=== PATIENT | male | born 1990 | race Caucasian/White ===

== ENCOUNTER 2017-06-26 12:36 | Inpatient (IN) | payer OTHER ==
[2017-06-26] MEDS ORDERED: Morphine 4 MG/ML VIAL ONE ×2 (13:48→16:50)
[2017-06-26] MEDS ORDERED: Ondansetron ODT 4 MG TAB ONE ×3 (13:48→20:02)
[2017-06-26 13:49] LABS: #Lymphocytes 0.5 thou/uL (1.20-3.40); #Neutrophils 8.6 thou/uL (1.40-6.50); %Basophils 0.1 % (0.0-1.0); %Eosinophils 0.4 % (0.0-10.0); %Lymphocytes 5.2 % (21.0-51.0); %Monocytes 9.4 % (0.0-10.0); Hemoglobin 16.4 g/dL (14.0-18.0); Mean Corpuscular HGB CONC 34.9 g/dL (32.0-36.0); Mean Platelet Volume 7.2 fL (7.4-10.4); Platelet Count 166 thou/uL (130-400); RBC Distribution Width 12.3 % (11.5-14.5); Red Blood Cell (RBC) Count 4.56 mill/uL (4.70-6.10); White Blood Cell (WBC) Count 10.1 thou/uL (4.8-10.8)
[2017-06-26 14:11] LABS: ALT (SGPT) 104 U/L (8-55); AST (SGOT) 70 U/L (5-34); Albumin 4.6 g/dL (3.5-5.0); Alkaline Phosphatase 99 U/L (40-150); Anion Gap 14 mmol/L (10-20); BUN (Urea Nitrogen) 25 mg/dL (8.9-20.6); Bilirubin, Total 0.7 mg/dL (0.2-1.2); Calc. Creatinine Clearance 0 mL/min (70-130); Calcium 9.3 mg/dL (7.8-10.44); Carbon Dioxide 27 mmol/L (22-29); Chloride 102 mmol/L (98-107); Estimated GFR-MDRD Greater than 90; Globulin 3.3 g/dL (2.4-3.5); Glucose 96 mg/dL (70-105); Lipase 21 U/L (8-78); Potassium 4.1 mmol/L (3.5-5.1); Protein, Total 7.9 g/dL (6.0-8.3); Sodium 139 mmol/L (136-145)
[2017-06-26 14:46] LABS: Bilirubin Small (Negative); Blood, Urine Negative (Negative); Clarity CLEAR (Clear); Glucose, Urine (Dipstick) Negative (Negative); Leukocyte Negative (Negative); Nitrite Negative (Negative); Protein, Urine (Dipstick) Negative (Neg-Trace); Specific Gravity, Urine 1.023 (1.002-1.036)
--- NOTE | 2017-06-26 15:46 | RAD ---
KUB: Date: 06/26/17 INDICATION: History of constipation and abdominal pain. FINDINGS: There is a mild amount of retained fecal material within the region of the rectum and sigmoid colon. Bowel gas pattern is unobstructed. There is a gracile appearance of both proximal femurs. No acute os seous abnormality is grossly evident. IMPRESSION: 1. Mild amount of retained stool within the colon and rectum. 2. Bowel gas pattern is unobstructed. POS: CARI
[2017-06-26] MEDS ORDERED: Milk Of Magnesia 30 ML UDCUP ONE (16:51)
[2017-06-26] MEDS ORDERED: Lidocaine Viscous Sol 2% 15 ml UD Cup ONE (17:24)
[2017-06-26] MEDS ORDERED: Mag-Al 1200 mg/1200 mg/30 ML UDCUP ONE (17:24)
--- NOTE | 2017-06-26 18:58 | CT ---
ABDOMEN AND PELVIC CT SCAN WITH IV CONTRAST 06/26/17 HISTORY: 26-year-old male with history of abdominal pain. The lung bases are clear. Small hiatal hernia. The visualized liver, gallbladder, pancreas and spleen are unremarkable. The left kidney is very small in caliber with some cortical loss and some cortical scarring but no evidence for renal calculus or acute obstruction. There is very marked abnormal w all thickening of the sigmoid colon and rectum with some pericolonic fat stranding, evidence for monica re nonspecific colitis. The abnormal wall thickening extends into the left colon and up to at least t he level of the splenic flexure with relative sparing of the transverse colon. There is some question able wall thickening versus incomplete filling of the right colon. Normal appearing appendix. No evid ence of renal calculus or obstruction. IMPRESSION: Evidence for severe nonspecific colitis with the most marked wall thickening and pericolonic fat stra nding involving the rectum and extending up into the sigmoid colon and left colon. No renal calculus or acute obstruction. Borderline urinary bladder wall thickening, nonspecific, but this could poss ibly represent some cystitis. Small scarred left kidney. No abscess or abnormal fluid collection. The re is also note of a somewhat deformed appearing bony pelvis and the left proximal femur which has th e appearance of old trauma residual. POS: CARI
[2017-06-26] MEDS ORDERED: metroNIDAZOLE 500 MG/100 ML BAG ONE (19:47)
[2017-06-26] MEDS ORDERED: ISOVUE-370 76%-LOCM 1 ML ONE (20:22)
[2017-06-26] MEDS ORDERED: Milk Of Magnesia 30 ML UDCUP PO PRN (22:13)
[2017-06-26] MEDS ORDERED: Morphine 4 MG/ML VIAL SLOW IVP PRN (22:13)
[2017-06-26] MEDS ORDERED: Adenosine 6 MG/2 ML VIAL ONE (22:45)
[2017-06-26] MEDS ORDERED: Metoprolol Tartrate 5 MG/5 ML VIAL ONE (22:58)
[2017-06-26] MEDS ORDERED: Metoprolol Tartrate 5 MG/5 ML VIAL IVP PRN (23:04)
[2017-06-27] MEDS: Sodium Chloride 0.9% 1,000 ML IV SCH ×4 (00:51→19:23)
[2017-06-27] MEDS ORDERED: Metoprolol Tartrate 5 MG/5 ML VIAL IVP PRN (01:03)
[2017-06-27] MEDS ORDERED: Ondansetron HCl/PF 4 MG/2 ML Vial IVP PRN (01:03)
[2017-06-27] MEDS ORDERED: Ondansetron ODT 4 MG TAB PO PRN (02:19)
--- NOTE | 2017-06-27 03:16 | HP ---
PRIMARY CARE PHYSICIAN: Hermann De Souza M.D. PRESENTING COMPLAINT: Abdominal pain. HISTORY OF PRESENT ILLNESS: Mr. Kenn Ramirez is a 26-year-old male with a history of cognitive dis order and cerebral palsy, as well as a history of impacted bowel, who presents to the emergency room with complaint of abdominal pain on for the past 4-5 days. It was associated with nausea and one epi sode of loose stool, with smaller caliber formed stools. There was no vomiting. He has no constipat ion. No fevers or chills. They called his PCP and he was told to come to the [facility] from where he was transferred to [facility]. He has no urinary symptoms. In ad dition, he had one episode of vomiting. History limited due to patient's cognitive disorder and cerebral palsy. PAST MEDICAL HISTORY: As stated in the HPI. PAST SURGICAL HISTORY: Multiple orthopedic surgeries, cleft palate. FAMILY HISTORY: Reviewed and noncontributory. SOCIAL HISTORY: Does not drink alcohol, smoke cigarettes, or use illicit drugs. ALLERGIES: TRAMADOL, BACTRIM. HOME MEDICATIONS: Reviewed. REVIEW OF SYSTEMS: Constitutional: Positive for fatigue, but denies fever or chills. HEENT: Negat mesha. Cardiovascular: Positive for intermittent chest pain and shortness of breath. Respiratory: S hortness of breath. GI: Per HPI. : Negative. Musculoskeletal: Negative. Skin: Negative. Ne urologic: Negative. Hematologic/Lymphatic: Negative. Psychiatric: Negative. PHYSICAL EXAMINATION: VITAL SIGNS: Heart rate 120s, blood pressure 115/79, oxygen saturation 99% on room air, and respirat ory rate 19. GENERAL: Not in acute distress, sitting comfortably in bed. HEENT: Not pale, anicteric. Moist mucous membranes. Atraumatic. NECK: Supple, full range of movement. CARDIOVASCULAR: Regular rhythm, but tachycardic. S1, S2 only. No murmurs, rubs, or gallops. ABDOMEN: Soft with diffuse mild pain. No guarding, rebound tenderness. Bowel sounds normoactive. MUSCULOSKELETAL: Contractures of the upper extremities bilaterally. SKIN: Warm, dry. No rashes or lesions. NEUROLOGIC: Alert, well-oriented. No focal deficits. LABORATORY DATA: CBC is largely unremarkable as well as CMP, but had mildly elevated AST and ALT. U rinalysis was not remarkable. IMAGING: Abdominal x-ray showed mild amount of retained stool in the colon and rectum with nonobstru ctive bowel gas pattern. CT abdomen/pelvis shows evidence of severe nonspecific colitis with most ma rked wall thickening and pericolic fat stranding involving the rectum and extending up to the sigmoid colon and left colon. No renal calculus or acute obstruction. Borderline urinary bladder wall t hickening, nonspecific, but this could possibly represent some cystitis. He also had some scar in th e left kidney. No abscess or abnormal fluid collection. There is also noted to have a somewhat defo rmed appearing bony pelvis on the left proximal femur, which has a prominent appearance of old trauma received well. He was started on IV hydration, cultures taken and parenteral ciprofloxacin and metr onidazole for colitis. ASSESSMENT AND PLAN: 1. Colitis: The patient presented with abdominal pain and CT findings suggestive of colitis. He wi ll be made n.p.o., started on parenteral antibiotics and cultures will be followed. Pain will be con trolled with morphine p.r.n. and patient will be reassessed in the morning. 2. Tachycardia. The patient has been tachycardic and did not respond to fluid boluses in the emerge ncy room. Also, while there, he had an arrhythmia with possible supraventricular tachycardia and was given IV metoprolol and adenosine, which aborted the arrhythmia. He will be admitted to telemetry oncare one at [facility], Cardiology will be consulted and an echocardiogram will be obtained. Metoprolol p.r.n. fo r tachycardia. Tachycardia has improved, but if he returns, we will obtain a followup EKG. 3. History of cerebral palsy and cognitive disorder. The patient is at his baseline. We will continue parenteral hydration as well. Deep venous thrombosis prophylaxis with enoxaparin. CODE STATUS: FULL CODE.
[2017-06-27] MEDS: metroNIDAZOLE 500 MG in Premix Bag 1 BAG IVPB SCH ×3 (05:08→23:47)
[2017-06-27 05:09] LABS: #Lymphocytes 0.7 thou/uL (1.20-3.40); #Monocytes 1.5 thou/uL (0.11-0.59); #Neutrophils 9.3 thou/uL (1.40-6.50); %Basophils 0.2 % (0.0-1.0); %Eosinophils 0.4 % (0.0-10.0); %Monocytes 12.9 % (0.0-10.0); %Neutrophils 80.5 % (42.0-75.0); Hemoglobin 13.7 g/dL (14.0-18.0); Mean Corpuscular HGB CONC 33.8 g/dL (32.0-36.0); Mean Corpuscular Hemoglobin 35.2 pg (27.0-31.0); Mean Platelet Volume 7.5 fL (7.4-10.4); Platelet Count 150 thou/uL (130-400); RBC Distribution Width 12.5 % (11.5-14.5); Red Blood Cell (RBC) Count 3.89 mill/uL (4.70-6.10); White Blood Cell (WBC) Count 11.6 thou/uL (4.8-10.8)
[2017-06-27 05:18] LABS: Anion Gap 15 mmol/L (10-20); BUN (Urea Nitrogen) 11 mg/dL (8.9-20.6); Calc. Creatinine Clearance 114 mL/min (70-130); Calcium 7.7 mg/dL (7.8-10.44); Carbon Dioxide 21 mmol/L (22-29); Chloride 105 mmol/L (98-107); Estimated GFR-MDRD Greater than 90; Glucose 104 mg/dL (70-105); Potassium 3.6 mmol/L (3.5-5.1); Sodium 137 mmol/L (136-145)
[2017-06-27] MEDS ORDERED: Promethazine HCl 25 MG/ML VIAL SLOW IVP PRN (05:26)
[2017-06-27] MEDS ORDERED: Ketorolac Tromethamine 30 MG/ML VIAL IVP SCH (05:30)
[2017-06-27 10:17] VITALS: BMI 21.3
[2017-06-27] MEDS: Docusate 100 MG CAP PO SCH ×2 (10:58→22:24)
[2017-06-27] MEDS: Enoxaparin Sodium 40 MG/0.4 ML SYRINGE SC SCH (10:58)
--- NOTE | 2017-06-27 12:39 | PDOC.PN ---
- Subjective Encounter Start Date: 06/27/17 Encounter Start Time: 12:38 Subjective: drowsy and nursing report low BP after pain meds,metoprolol -: c/o mild AP when woken up.no nausea/vomiting.some loose stools - Objective MAR Reviewed: Yes Vital Signs & Weight: Vital Signs (12 hours) Temp Pulse Resp BP Pulse Ox 06/27/17 12:00 99.0 F 103 H 14 99/72 97 06/27/17 11:09 99/72 06/27/17 10:02 89/62 L 06/27/17 07:55 99.7 F H 120 H 16 86/41 L 97 06/27/17 03:42 98.4 F 123 H 16 95/52 L 97 Weight Admit Weight 85 lb Weight 105 lb 11.2 oz I&O: 06/26/17 06/27/17 06/28/17 06:59 06:59 06:59 Intake Total 1320 Balance 1320 Result Diagrams: 06/27/17 04:48 06/27/17 04:48 Radiology Reviewed by me: Yes (CT-colitis) EKG Reviewed by me: Yes (Sinus Tach on monitor) Phys Exam - Physical Examination Constitutional: NAD pale,weak looking HEENT: PERRLA, moist MMs, sclera anicteric, oral pharynx no lesions Neck: no JVD Respiratory: no wheezing, no rales, no rhonchi, clear to auscultation bilateral Cardiovascular: RRR, no significant murmur Gastrointestinal: soft, no distention, positive bowel sounds mild TTP lpower abdomen across Musculoskeletal: no edema, pulses present Neurological: non-focal, normal sensation LE weakness noted Psychiatric: normal affect, A&O x 3 Skin: no rash Dx/Plan (1) Colitis Code(s): K52.9 - NONINFECTIVE GASTROENTERITIS AND COLITIS, UNSPECIFIED Status : Acute (2) Abdominal pain Code(s): R10.9 - UNSPECIFIED ABDOMINAL PAIN Status: Acute (3) Sinus tachycardia Code(s): R00.0 - TACHYCARDIA, UNSPECIFIED Status: Acute (4) Hypotension Status: Acute (5) Cerebral palsy Code(s): G80.9 - CEREBRAL PALSY, UNSPECIFIED Status: Chronic - Plan plan discussed w/ family, continue antibiotics, PT/OT, DVT proph w/SCDs cont IV ABx.will consult GI for extensive colitis.? stercoral -: bowel regimen to prevent ileus -: fluid bolus given for low Bp w improvement.hold BB/pain meds -: Cardiology consult for short episode of SVT in ER.ECHO ordered. -: supportive care.cont IVF.obtain stool studies.am labs * . Review of Systems - Review of Systems Constitutional: weakness, malaise ENT: negative: Ear Pain, Ear Discharge, Nose Pain, Nose Discharge, Nose Congestion, Mouth Pain, Mouth Swelling, Throat Pain, Throat Swelling, Other Respiratory: negative: Cough, Dry, Shortness of Breath, Hemoptysis, SOB with Excertion, Pleuritic Pain, Sputum, Wheezing Cardiovascular: negative: chest pain, palpitations, orthopnea, paroxysmal nocturnal dyspnea, edema, light headedness, other Gastrointestinal: Abdominal Pain, Diarrhea Genitourinary: negative: Dysuria, Frequency, Incontinence, Hematuria, Retention , Other Musculoskeletal: negative: Neck Pain, Shoulder Pain, Arm Pain, Back Pain, Hand Pain, Leg Pain, Foot Pain, Other Skin: negative: Rash, Lesions, Eladio, Bruising, Other Neurological: Weakness (chronic due to CP). negative: Numbness, Incoordination , Change in Speech, Confusion, Seizures, Other - Medications/Allergies Allergies/Adverse Reactions: Allergies Allergy/AdvReac Type Severity Reaction Status Date / Time sulfamethoxazole Allergy Verified 06/27/17 05:31 [From Bactrim] tramadol Allergy Verified 06/27/17 05:31 trimethoprim [From Bactrim] Allergy Verified 06/27/17 05:31 Medications: Current Medications Acetaminophen (Tylenol) 650 mg PO Q4H PRN PRN Reason: Headache/Fever or Pain Docusate Sodium (Colace) 100 mg PO BID [facility] Last Admin: 06/27/17 10:58 Dose: Not Given Enoxaparin Sodium (Lovenox) 40 mg SC 0900 [facility] Last Admin: 06/27/17 10:58 Dose: 40 mg Ciprofloxacin/Dextrose 400 mg/ (Device) 200 mls @ 200 mls/hr IVPB Q12HR [facility] Last Admin: 06/27/17 10:57 Dose: 200 mls Metronidazole 500 mg/ Device 100 mls @ 100 mls/hr IVPB Q8HR [facility] Last Admin: 06/27/17 05:08 Dose: 100 mls Sodium Chloride (Normal Saline 0.9%) 1,000 mls @ 150 mls/hr IV .Q6H40M [facility] Last Admin: 06/27/17 10:57 Dose: 1,000 mls Lactulose (Lactulose) 20 gm PO DAILYPRN PRN PRN Reason: Constipation Magnesium Hydroxide (Milk Of Magnesium) 30 ml PO DAILYPRN PRN PRN Reason: Constipation Metoprolol Tartrate (Lopressor) 5 mg IVP Q6H PRN PRN Reason: To Control Heart Rate Last Admin: 06/27/17 01:05 Dose: 5 mg Morphine Sulfate (Morphine) 4 mg SLOW IVP Q4H PRN PRN Reason: Severe Pain (7-10) Last Admin: 06/27/17 00:50 Dose: 4 mg Ondansetron HCl (Zofran Odt) 4 mg PO Q6H PRN PRN Reason: Nausea/Vomiting Last Admin: 06/27/17 02:35 Dose: 4 mg Promethazine HCl (Phenergan) 12.5 mg SLOW IVP Q4H PRN PRN Reason: Nausea Last Admin: 06/27/17 06:17 Dose: 12.5 mg Sodium Chloride (Flush - Normal Saline) 10 ml IVF Q12HR [facility] Sodium Chloride (Flush - Normal Saline) 10 ml IVF PRN PRN PRN Reason: Saline Flush Last Admin: 06/27/17 00:51 Dose: 10 ml
--- NOTE | 2017-06-27 15:09 | CON ---
DATE OF CONSULTATION: 06/27/2017 CARDIOLOGY CONSULTATION REASON FOR CONSULTATION: Supraventricular tachycardia. HISTORY OF PRESENT ILLNESS: Mr. Ramirez is a pleasant 26-year-old white gentleman, who comes [facility] for abdominal pain. He was diagnosed with the colitis from an abdominal CT and admitted for IV antibiotics. During his admission in the ER, he had a heart rate in the 230s. EKG showed SVT. Sherly elder was given a dose of adenosine and metoprolol, which broke his SVT to sinus tachycardia and made his heart rate go down to about the 120s-130s. He otherwise has no other issues at this time. He has n ot had any more episodes of SVT since being in the hospital. PAST MEDICAL HISTORY: 1. Cognitive disorder with cerebral palsy. 2. 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 PAST SURGICAL HISTORY: 1. Cleft palate repair. 2. Multiple orthopedic surgeries in the past. FAMILY HISTORY: Negative for early coronary artery disease. SOCIAL HISTORY: No alcohol, tobacco or drugs. ALLERGIES: TRAMADOL and BACTRIM. OUTPATIENT MEDICATIONS: None. REVIEW OF SYSTEMS: A 12 point review of systems was done, it is all negative unless stated in the hi story of present illness. PHYSICAL EXAMINATION: VITAL SIGNS: Temperature 99.7, pulse 103, respiratory rate 14, satting 97% on room air, blood pressu re 99/72. GENERAL: Awake, alert, oriented x3, in no distress. HEENT: Normocephalic, atraumatic. NECK: Supple. LUNGS: Clear. CARDIOVASCULAR: S1, S2, no S3, S4, no murmurs. ABDOMEN: Soft, positive bowel sounds. EXTREMITIES: Contracted. No edema. SKIN: Normal and dry. LABORATORY WORK: Reviewed. White count of 11.6, hemoglobin of 13.7, hematocrit 40, platelet count o f 150. Chemistries were reviewed. UA was unremarkable. IMAGING: CT of the abdomen and pelvis was reviewed, evidence of severe nonspecific colitis, most mar ked wall thickening pericolonic fat stranding involving the rectum and extending up into the sigmoid colon and left colon. EKG is reviewed, SVT at 238 beats per minute. ASSESSMENT AND PLAN: 1. Supraventricular tachycardia. 2. Acute infectious colitis. 3. Cognitive disorder and some low cerebral palsy. PLAN: 1. Currently, he is intolerant to any beta-samir or calcium channel samir. He did receive a dos e of IV metoprolol this morning and his blood pressure dipped down to the 70s/40s. At this time, he is in sinus tachycardia, most likely related to his infection. We will continue to monitor for now. 2. We will do EP consultation for consideration of ablation; however, this probably will not happen until after his colitis is resolved. 3. Continue to monitor on telemetry. If he were to have any further episodes of SVT, would recommen d doing IV adenosine at that time. Thank you for letting us participate in the care of your patient. We will follow.
--- NOTE | 2017-06-28 00:08 | CON ---
DATE OF CONSULTATION: 06/27/2017 REFERRING PHYSICIAN: Dr. Tamara Merlos, [facility] [[email or web address]] Service. REASON FOR CONSULTATION: Abdominal pain, abnormal CT scan of the abdomen. HISTORY OF PRESENT ILLNESS: Mr. Kenn Ramirez is a fragile looking young male, who has hi story of cerebral palsy, cognitive disorder. The patient does see Dr. Hermann De Souza, who is his prima care doctor. The patient was seen in the room along with the patient's mother. The patient's mot her tells me that he got sick over the past Thursday after drinking some pineapple juice He did not fee l good for a day or two and he did not feel like eating. However, he is having little bowel movement . He had no diarrhea. There were no history of any nausea or vomiting. Symptoms not getting better on Thursday and he felt good and even does say as she felt good and was having eating very well, no n ausea, no abdominal pain, no diarrhea, etc. Yesterday morning, started having abdominal pain. Appar ently, they tried to get hold of Dr. Bocanegra who advised the patient to come to the ER. The patient' s mother brought him to the ER. The patient had an abdominal CAT scan done in the ER. The CAT scan showed thickening of the rectum and whole entire left colon. However, there is no history of diarrhe a as per the mother. He has normal stool on . He had one episode of vomiting in the ER yest . However, after, he has had no more vomiting. He is n.p.o. He appears comfortable. His moth er tells me that after he vomited, he was found to have some more heartburn and also has some chest p ain. The patient appears very comfortable as the same time he is having some mild to moderate pain. He has had no stool today. He has no more nausea or vomiting in the floor. There is mention of fec al impaction but the mother tell mother tells this happening quite some time ago not seen recently. Recently has been actually having more regular bowel movements. No relevant history. ALLERGIES: TRAMADOL and BACTRIM. SOCIAL HISTORY: The patient does not smoke or drink alcohol. MEDICAL ILLNESSES: 1. Cerebral palsy. 2. Cognitive disorder. 3. Multiple orthopedic surgeries. 4. Multiple surgeries of cleft palate. MEDICATIONS: List reviewed. Include Ciprofloxacin, docusate, Lovenox, Zofran, lactulose, metoprolol , metronidazole, morphine p.r.n. He is also on Percocet p.r.n. REVIEW OF SYSTEMS: Unobtainable because of the cognitive impairment. PHYSICAL EXAMINATION: GENERAL: Reveals a fragile looking young male, who appears very comfortable in no distress . VITAL SIGNS: He has low grade fever of 99 degrees Fahrenheit, pulse 103, blood pressure is 119/72. HEENT: Conjunctivae clear. NECK: Supple. No adenitis or thyromegaly noted. CARDIOVASCULAR SYSTEM: First and second heart sound normal. LUNGS: Clear to auscultation. ABDOMEN: Soft and nondistended. Abdomen is mildly tender across the lower abdomen. Over all, the e xam is very benign. EXTREMITIES: Reveal no edema. LABORATORY DATA AND IMAGING: CBC shows WBC from this morning 11,600, hemoglobin 13.7, hematocrit 40. 6, MCV 104, platelet count is 150,000, polymorphs 18, lymphocytes 6, monocytes 12. Serum chemistries : Sodium 137, potassium 3.6, chloride 105, bicarbonate 21. BUN is 11, it was 25 on admission. Crea tinine 0.67, calcium 7.7, bilirubin 0.7, AST slightly high at 70, ALT 104, alkaline phosphatase 99, a lbumin 4.6. An abdominal CAT scan done showed evidence of colitis of the left colon. CLINICAL IMPRESSION: 1. A 26-year-old male with abdominal pain and history of some nausea and some vomiting on admission. The patient had fecal impaction long time ago, but nothing recently. The CAT scan showed finding of left sided colitis. The patient had no diarrhea or rectal bleeding. It is not very rory r what is the reason for the colitis. His abdomen exam is very benign. It is possible that the tracy ent may be having infectious colitis. 2. Cerebral palsy - cognitive impairment. 3. Abnormal liver function tests . The CAT scan of the abdomen did not show any liver parenchym al abnormalities. RECOMMENDATIONS: 1. Discontinue n.p.o. 2. Clear liquid diet. 3. The patient is not having diarrhea, obtain stool for C. difficile and culture and ova and parasit es. 4. We will make further recommendations as time goes. I will also talk to mother about a colonoscop y.
[2017-06-28] MEDS: Sodium Chloride 0.9% 1,000 ML IV SCH ×2 (04:23→09:11)
[2017-06-28] MEDS: metroNIDAZOLE 500 MG in Premix Bag 1 BAG IVPB SCH ×3 (05:37→21:18)
[2017-06-28 06:16] LABS: Anion Gap 8 mmol/L (10-20); BUN (Urea Nitrogen) 5 mg/dL (8.9-20.6); Calc. Creatinine Clearance 118 mL/min (70-130); Calcium 7.4 mg/dL (7.8-10.44); Carbon Dioxide 22 mmol/L (22-29); Chloride 110 mmol/L (98-107); Estimated GFR-MDRD Greater than 90; Glucose 93 mg/dL (70-105); Potassium 3.7 mmol/L (3.5-5.1); Sodium 136 mmol/L (136-145)
[2017-06-28 07:01] LABS: Eosinophils 4 % (0-10); Hemoglobin 12.7 g/dL (14.0-18.0); Lymphocytes 21 % (21-51); MDiff Complete? YES; Macrocytosis MODERATE=16-30 cells (100X) (0-5/hpf); Mean Corpuscular HGB CONC 33.8 g/dL (32.0-36.0); Mean Corpuscular Hemoglobin 35.4 pg (27.0-31.0); Mean Platelet Volume 7.6 fL (7.4-10.4); Monocytes 8 % (0-10); Neutrophil 66 % (42-75); PLT Morphology Comment Appears Decreased; Platelet Count 113 thou/uL (130-400); RBC Distribution Width 12.5 % (11.5-14.5); Reactive Lymphocytes 1 % (0-10); White Blood Cell (WBC) Count 5.4 thou/uL (4.8-10.8)
[2017-06-28] MEDS ORDERED: Morphine 4 MG/ML VIAL SLOW IVP PRN (08:25)
[2017-06-28] MEDS ORDERED: Metoprolol Tartrate 5 MG/5 ML VIAL IVP PRN (08:26)
[2017-06-28] MEDS: Docusate 100 MG CAP PO SCH ×2 (09:10→21:18)
[2017-06-28] MEDS: Enoxaparin Sodium 40 MG/0.4 ML SYRINGE SC SCH (09:10)
[2017-06-28] MEDS ORDERED: Pantoprazole 40 MG VIAL IVP SCH (10:15)
--- NOTE | 2017-06-28 13:42 | PDOC.CTH ---
Cardiology Progress Note - Subjective He is doing well. No new issues. - Objective Vital Signs Temp Pulse Resp BP BP Pulse Ox 06/28/17 11:43 98.5 F 108 H 16 115/84 95 06/28/17 08:59 98.5 F 108 H 16 06/28/17 08:00 98.7 F 114 H 18 92/62 95 06/28/17 04:00 98.8 F 101 H 18 101/46 L 95 Admit Weight 85 lb Weight 105 lb 11.2 oz 06/27/17 06/28/17 06/29/17 06:59 06:59 06:59 Intake Total 1320 7440 300 Balance 1320 7440 300 - Physical Examination General/Neuro: alert & oriented x3, NAD Neck: no JVD present Lungs: CTA, unlabored respirations Heart: RRR Abdomen: NT/ND Extremities: other: (no edema, contracted,.) - Telemetry Telemetry Rhythm: S tach - Labs Result Diagrams: 06/28/17 05:26 06/28/17 05:26 - Assessment/Plan 1. SVT 2. Colitis 3. CP PLAN: - EP consultation tomorrow. - BP borderline low to start a BB or CCB.
--- NOTE | 2017-06-28 13:47 | PDOC.PN ---
- Subjective Encounter Start Date: 06/28/17 Encounter Start Time: 13:46 Subjective: some abdominal cramps but no stools. no vomiting.no fever/chills -: good appetite and eating most of his regular diet - Objective MAR Reviewed: Yes Vital Signs & Weight: Vital Signs (12 hours) Temp Pulse Resp BP BP Pulse Ox 06/28/17 11:43 98.5 F 108 H 16 115/84 95 06/28/17 08:59 98.5 F 108 H 16 06/28/17 08:00 98.7 F 114 H 18 92/62 95 06/28/17 04:00 98.8 F 101 H 18 101/46 L 95 Weight Admit Weight 85 lb Weight 105 lb 11.2 oz I&O: 06/27/17 06/28/17 06/29/17 06:59 06:59 06:59 Intake Total 1320 7440 300 Balance 1320 7440 300 Result Diagrams: 06/28/17 05:26 06/28/17 05:26 Radiology Reviewed by me: Yes (ECHO-NL cardiac function and valves) Phys Exam - Physical Examination Constitutional: NAD HEENT: PERRLA, moist MMs, sclera anicteric, oral pharynx no lesions Neck: no JVD Respiratory: no wheezing, no rales, no rhonchi, clear to auscultation bilateral Cardiovascular: RRR, no significant murmur Gastrointestinal: soft, no distention, positive bowel sounds mild TTP left abdominal Musculoskeletal: no edema, pulses present Neurological: non-focal, normal sensation, moves all 4 limbs Psychiatric: normal affect, A&O x 3 Deviation from normal: mild mental retardation Skin: no rash Dx/Plan (1) Colitis Code(s): K52.9 - NONINFECTIVE GASTROENTERITIS AND COLITIS, UNSPECIFIED Status : Acute Comment: millaley infectious.Clinically improving. (2) Abdominal pain Code(s): R10.9 - UNSPECIFIED ABDOMINAL PAIN Status: Acute (3) Sinus tachycardia Code(s): R00.0 - TACHYCARDIA, UNSPECIFIED Status: Acute (4) Hypotension Status: Acute (5) Cerebral palsy Code(s): G80.9 - CEREBRAL PALSY, UNSPECIFIED Status: Chronic (6) SVT (supraventricular tachycardia) Code(s): I47.1 - SUPRAVENTRICULAR TACHYCARDIA Status: Acute Comment: one episode in ER. - Plan plan discussed w/ family, continue antibiotics, PT/OT, DVT proph w/SCDs cont empiric ABx for infectious colitis.Stools studies pending.will give 1 -: dose lactulose to get stool sample. -: DC IVF as diet is good. -: Cardiology recs noted-will consult EP for possible ablation.NPO past MN -: HD stable.WC bound.will consult OT/PT for in house conditioning * .HR better. avoid BB/CCb due to low BP * Review of Systems - Review of Systems Constitutional: malaise. negative: fever, chills, sweats, weakness, other ENT: negative: Ear Pain, Ear Discharge, Nose Pain, Nose Discharge, Nose Congestion, Mouth Pain, Mouth Swelling, Throat Pain, Throat Swelling, Other Respiratory: negative: Cough, Dry, Shortness of Breath, Hemoptysis, SOB with Excertion, Pleuritic Pain, Sputum, Wheezing Cardiovascular: negative: chest pain, palpitations, orthopnea, paroxysmal nocturnal dyspnea, edema, light headedness, other Gastrointestinal: Abdominal Pain. negative: Nausea, Vomiting, Diarrhea, Constipation, Melena, Hematochezia, Other Genitourinary: negative: Dysuria, Frequency, Incontinence, Hematuria, Retention , Other Musculoskeletal: negative: Neck Pain, Shoulder Pain, Arm Pain, Back Pain, Hand Pain, Leg Pain, Foot Pain, Other Skin: negative: Rash, Lesions, Eladio, Bruising, Other Neurological: negative: Weakness, Numbness, Incoordination, Change in Speech, Confusion, Seizures, Other - Medications/Allergies Allergies/Adverse Reactions: Allergies Allergy/AdvReac Type Severity Reaction Status Date / Time sulfamethoxazole Allergy Verified 06/27/17 05:31 [From Bactrim] tramadol Allergy Verified 06/27/17 05:31 trimethoprim [From Bactrim] Allergy Verified 06/27/17 05:31 Medications: Current Medications Acetaminophen (Tylenol) 650 mg PO Q4H PRN PRN Reason: Headache/Fever or Pain Docusate Sodium (Colace) 100 mg PO BID [facility] Last Admin: 06/28/17 09:10 Dose: 100 mg Enoxaparin Sodium (Lovenox) 40 mg SC 0900 [facility] Last Admin: 06/28/17 09:10 Dose: 40 mg Ciprofloxacin/Dextrose 400 mg/ (Device) 200 mls @ 200 mls/hr IVPB Q12HR [facility] Last Admin: 06/28/17 09:08 Dose: 200 mls Metronidazole 500 mg/ Device 100 mls @ 100 mls/hr IVPB Q8HR [facility] Last Admin: 06/28/17 12:44 Dose: 100 mls Lactulose (Lactulose) 20 gm PO DAILYPRN PRN PRN Reason: Constipation Last Admin: 06/28/17 11:22 Dose: 20 gm Magnesium Hydroxide (Milk Of Magnesium) 30 ml PO DAILYPRN PRN PRN Reason: Constipation Metoprolol Tartrate (Lopressor) 5 mg IVP Q6H PRN PRN Reason: HR > 135 Morphine Sulfate (Morphine) 2 mg SLOW IVP Q4H PRN PRN Reason: Severe Pain (7-10) Ondansetron HCl (Zofran Odt) 4 mg PO Q6H PRN PRN Reason: Nausea/Vomiting Last Admin: 06/27/17 02:35 Dose: 4 mg Pantoprazole Sodium (Protonix) 40 mg PO DAILY [facility] Promethazine HCl (Phenergan) 12.5 mg SLOW IVP Q4H PRN PRN Reason: Nausea Last Admin: 06/27/17 06:17 Dose: 12.5 mg Sodium Chloride (Flush - Normal Saline) 10 ml IVF Q12HR [facility] Last Admin: 06/28/17 09:11 Dose: Not Given Sodium Chloride (Flush - Normal Saline) 10 ml IVF PRN PRN PRN Reason: Saline Flush Last Admin: 06/27/17 00:51 Dose: 10 ml
[2017-06-28] MEDS: Acetaminophen 325 MG TAB PO PRN (23:33)
[2017-06-29] MEDS ORDERED: diphenhydrAMINE 50 MG/ML VIAL IVP SCH (01:02)
--- NOTE | 2017-06-29 01:08 | PDOC.EVN ---
Event Note - Event Note Event Note: called to patient bedside to evaluated twitching of the R arm while at bedside, patient's mother highlights that the patient has increased eye redness, is breathing fast, and has erythema rapidly developing across chest wall, neck pt c/o right sided chest pain and that his right arm hurts several PIV attempts were made on the RUE earlier in the evening with a L midline ultlimately placed concerning for allergic reaction - IV benadryl, IV famotidine, IV solumedrol ordered check EKG, troponin, CXR as well
[2017-06-29] MEDS ORDERED: Famotidine 40 MG/4 ML VIAL SLOW IVP SCH (01:15)
[2017-06-29 01:56] LABS: Band 1 % (5-11); Eosinophils 3 % (0-10); Hemoglobin 13.9 g/dL (14.0-18.0); Lymphocytes 28 % (21-51); MDiff Complete? YES; Mean Corpuscular HGB CONC 34.5 g/dL (32.0-36.0); Mean Corpuscular Hemoglobin 35.9 pg (27.0-31.0); Mean Platelet Volume 7.1 fL (7.4-10.4); Monocytes 23 % (0-10); Neutrophil 44 % (42-75); PLT Morphology Comment Appears Adequate; Platelet Count 136 thou/uL (130-400); RBC Distribution Width 12.3 % (11.5-14.5); Red Blood Cell (RBC) Count 3.88 mill/uL (4.70-6.10); White Blood Cell (WBC) Count 4.6 thou/uL (4.8-10.8)
[2017-06-29 02:01] LABS: ALT (SGPT) 64 U/L (8-55); AST (SGOT) 32 U/L (5-34); Albumin 3.6 g/dL (3.5-5.0); Alkaline Phosphatase 64 U/L (40-150); Anion Gap 11 mmol/L (10-20); BUN (Urea Nitrogen) 7 mg/dL (8.9-20.6); Bilirubin, Total 0.6 mg/dL (0.2-1.2); Calc. Creatinine Clearance 114 mL/min (70-130); Calcium 8.3 mg/dL (7.8-10.44); Carbon Dioxide 26 mmol/L (22-29); Chloride 105 mmol/L (98-107); Estimated GFR-MDRD Greater than 90; Globulin 2.7 g/dL (2.4-3.5); Glucose 93 mg/dL (70-105); Potassium 3.6 mmol/L (3.5-5.1); Protein, Total 6.3 g/dL (6.0-8.3); Sodium 138 mmol/L (136-145)
[2017-06-29 02:06] LABS: Troponin I Less than 0.010 ng/mL (< 0.028)
[2017-06-29] MEDS: metroNIDAZOLE 500 MG in Premix Bag 1 BAG IVPB SCH ×2 (05:25→07:42)
--- NOTE | 2017-06-29 08:35 | RAD ---
CHEST 1 VIEW: Date: 06/29/17 HISTORY: Chest pain. COMPARISON: None. FINDINGS: Portable upright chest demonstrates a normal cardiac silhouette. Lungs and pleural spaces are clear. No pneumothorax or osseous abnormalities. IMPRESSION: No acute cardiopulmonary process. POS: [facility]
--- NOTE | 2017-06-29 09:04 | PRG ---
DATE OF SERVICE: 06/28/2017 SUBJECTIVE: This is a 26-year-old hospitalized over the weekend with abdominal cramping an d nausea and loose stool. The CAT scan shows left-sided colitis. He is on IV antibiotics. He also had an episode of SVT and has seen Dr. Winston. The patient appears very comfortable at the present t silvia. He is tolerating diet. There is no nausea, no vomiting. He has no abdominal cramping off and on. No abdominal pain. OBJECTIVE: GENERAL: Appears very comfortable, afebrile, temperature 98.8 degrees Fahrenheit, pulse 101, blood p ressure 101/46. LUNGS: Normal limits. ABDOMEN: Abdomen is soft. Abdomen is nondistended. Abdomen actually is nontender. He complains of abdominal cramping off and on. LABORATORY DATA: Showed a normal WBC count 5400, hemoglobin is 12.7, hematocrit 37.6, platelet count 130. MEDICAL ILLNESSES: His chemistry panel is normal. BUN is 5, creatinine is 0.65. CLINICAL IMPRESSION: 1. Colitis, most likely infectious as he seems to be better with treatment on antibiotics. 2. Supraventricular tachycardia, resolved. 3. Cerebral palsy, cognitive impairment. RECOMMENDATIONS: 1. Diet as tolerated. 2. Continue antibiotics. Because of age and colitis, I believe he did agree . Recommend he may follow the LFTs as outpatient to make sure they normalize.
[2017-06-29] MEDS: Enoxaparin Sodium 40 MG/0.4 ML SYRINGE SC SCH (10:14)
[2017-06-29] MEDS: Docusate 100 MG CAP PO SCH ×2 (10:14→21:17)
[2017-06-29] MEDS: Sodium Chloride 0.9% 1,000 ML IV SCH ×2 (11:14→21:16)
--- NOTE | 2017-06-29 12:16 | PDOC.PN ---
- Subjective Encounter Start Date: 06/29/17 Encounter Start Time: 12:14 Subjective: c/o itchy eyes,rash and throat pain last night during flagyl infusion -: 1 small BM this am which was formed -: on and off complains of chest pain of few seconds - Objective MAR Reviewed: Yes Vital Signs & Weight: Vital Signs (12 hours) Temp Pulse Resp BP Pulse Ox 06/29/17 12:00 98.6 F 98 12 149/95 H 97 06/29/17 08:14 96.4 F L 116 H 18 121/75 98 06/29/17 04:00 98.6 F 96 16 120/70 98 Weight Admit Weight 85 lb Weight 105 lb 14.4 oz I&O: 06/28/17 06/29/17 06/30/17 06:59 06:59 06:59 Intake Total 7440 750 Balance 7440 750 Result Diagrams: 06/29/17 01:26 06/29/17 01:26 Additional Labs: Laboratory Tests 06/26/17 06/29/17 06/29/17 13:39 01:26 01:26 AST 70 H 32 ALT 104 H 64 H Alkaline Phosphatase 99 64 Troponin I Less than 0.010 Radiology Reviewed by me: Yes (CXR- no edema,infiltrate) EKG Reviewed by me: Yes (NSR) Phys Exam - Physical Examination Constitutional: NAD HEENT: PERRLA, moist MMs, sclera anicteric, oral pharynx no lesions Neck: no nodes, no JVD, supple, full ROM Respiratory: no wheezing, no rales, no rhonchi, clear to auscultation bilateral Cardiovascular: RRR, no significant murmur Gastrointestinal: soft, non-tender, no distention, positive bowel sounds Musculoskeletal: no edema, pulses present Neurological: non-focal, normal sensation, moves all 4 limbs Psychiatric: normal affect, A&O x 3 Deviation from normal: mild mental reterdation Skin: no rash Dx/Plan (1) Colitis Code(s): K52.9 - NONINFECTIVE GASTROENTERITIS AND COLITIS, UNSPECIFIED Status : Acute Comment: millaley infectious.Clinically improving. (2) Abdominal pain Code(s): R10.9 - UNSPECIFIED ABDOMINAL PAIN Status: Acute (3) Sinus tachycardia Code(s): R00.0 - TACHYCARDIA, UNSPECIFIED Status: Acute (4) Hypotension Status: Acute (5) Cerebral palsy Code(s): G80.9 - CEREBRAL PALSY, UNSPECIFIED Status: Chronic (6) SVT (supraventricular tachycardia) Code(s): I47.1 - SUPRAVENTRICULAR TACHYCARDIA Status: Acute Comment: one episode in ER. 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 Miles for ablation for SVT today * .await final GI recs. * hemodynamically stable. * check am labs * blood Cx not sent on admission but does not appear septic on clinical exam. * start IVF as he is NPO for procedure today * stool sample obtained today.will follow results Review of Systems - Review of Systems Constitutional: negative: fever, chills, sweats, weakness, malaise, other Respiratory: negative: Cough, Dry, Shortness of Breath, Hemoptysis, SOB with Excertion, Pleuritic Pain, Sputum, Wheezing Cardiovascular: negative: chest pain, palpitations, orthopnea, paroxysmal nocturnal dyspnea, edema, light headedness, other Gastrointestinal: negative: Nausea, Vomiting, Abdominal Pain, Diarrhea, Constipation, Melena, Hematochezia, Other Genitourinary: negative: Dysuria, Frequency, Incontinence, Hematuria, Retention , Other Musculoskeletal: negative: Neck Pain, Shoulder Pain, Arm Pain, Back Pain, Hand Pain, Leg Pain, Foot Pain, Other Neurological: negative: Weakness, Numbness, Incoordination, Change in Speech, Confusion, Seizures, Other - Medications/Allergies Allergies/Adverse Reactions: Allergies Allergy/AdvReac Type Severity Reaction Status Date / Time sulfamethoxazole Allergy Verified 06/27/17 05:31 [From Bactrim] tramadol Allergy Verified 06/27/17 05:31 trimethoprim [From Bactrim] Allergy Verified 06/27/17 05:31 Medications: Current Medications Acetaminophen (Tylenol) 650 mg PO Q4H PRN PRN Reason: Headache/Fever or Pain Last Admin: 06/28/17 23:33 Dose: 650 mg Docusate Sodium (Colace) 100 mg PO BID [facility] Last Admin: 06/29/17 10:14 Dose: Not Given Enoxaparin Sodium (Lovenox) 40 mg SC 0900 [facility] Last Admin: 06/29/17 10:14 Dose: Not Given Ciprofloxacin/Dextrose 400 mg/ (Device) 200 mls @ 200 mls/hr IVPB Q12HR [facility] Last Admin: 06/29/17 10:16 Dose: 200 mls Sodium Chloride (Normal Saline 0.9%) 1,000 mls @ 100 mls/hr IV .Q10H [facility] Last Admin: 06/29/17 11:14 Dose: Not Given Lactulose (Lactulose) 20 gm PO DAILYPRN PRN PRN Reason: Constipation Last Admin: 06/28/17 11:22 Dose: 20 gm Magnesium Hydroxide (Milk Of Magnesium) 30 ml PO DAILYPRN PRN PRN Reason: Constipation Metoprolol Tartrate (Lopressor) 5 mg IVP Q6H PRN PRN Reason: HR > 135 Metronidazole (Flagyl) 500 mg PO TID [facility] Morphine Sulfate (Morphine) 2 mg SLOW IVP Q4H PRN PRN Reason: Severe Pain (7-10) Ondansetron HCl (Zofran Odt) 4 mg PO Q6H PRN PRN Reason: Nausea/Vomiting Last Admin: 06/27/17 02:35 Dose: 4 mg Pantoprazole Sodium (Protonix) 40 mg PO DAILY [facility] Last Admin: 06/29/17 10:14 Dose: Not Given Promethazine HCl (Phenergan) 12.5 mg SLOW IVP Q4H PRN PRN Reason: Nausea Last Admin: 06/27/17 06:17 Dose: 12.5 mg Sodium Chloride (Flush - Normal Saline) 10 ml IVF Q12HR [facility] Last Admin: 06/29/17 10:14 Dose: Not Given Sodium Chloride (Flush - Normal Saline) 10 ml IVF PRN PRN PRN Reason: Saline Flush Last Admin: 06/29/17 01:43 Dose: 10 ml
[2017-06-29] MEDS ORDERED: EPINEPHrine 1 mg/ml MDV (1ml Charge) IM PRN (12:22)
[2017-06-29] MEDS ORDERED: hydrOXYzine 25 MG TAB PO PRN (12:22)
[2017-06-29] MEDS ORDERED: Famotidine/PF 20 mg/2ml Vial SLOW IVP PRN (12:22)
[2017-06-29] MEDS ORDERED: PROPOFOL 200 MG/20 ML VIAL ONE (12:24)
[2017-06-29] MEDS ORDERED: Glycopyrrolate 0.2 MG/ML 5 ML SYRINGE ONE (12:24)
[2017-06-29] MEDS ORDERED: Lidocaine 1% PF 5 ML VIAL ONE (12:24)
[2017-06-29] MEDS ORDERED: PHENYLEPHRINE-NS 100 MCG/ML 10 ML SYRINGE ONE (12:24)
[2017-06-29] MEDS ORDERED: Lidocaine 1% (PF) 30 ML VIAL ONE (12:50)
[2017-06-29] MEDS ORDERED: Heparin 10,000 UNITS/1 ML VIAL ONE (12:50)
[2017-06-29] MEDS ORDERED: Midazolam HCl 2 mg/2 ml Vial ONE (13:03)
--- NOTE | 2017-06-29 13:25 | CON ---
DATE OF CONSULTATION: 06/29/2017 ELECTROPHYSIOLOGY CONSULTATION REFERRING PHYSICIAN: Dr. Winston I am seeing Mr. Ramirez at our [facility] telemetry floor as an electrophysiology alliance consultant. His problems are: 1. Supraventricular tachycardia with rates up to 230 beats per minute documented on EKGs respond to adenosine. 2. Normal LVEF at 60-65%, mild TR on echo from 06/27/2017. 3. History of cerebral palsy with prior orthopedic surgeries. 4. Constipation, rule out colitis. ALLERGIES: TRAMADOL and BACTRIM. CURRENT MEDICATIONS: Included Cipro, docusate, Lovenox, Zofran, lactulose, metoprolol, metronidazole , morphine, Percocet. SUBJECTIVE: Mr. Ramirez is a somewhat of a poor historian. History obtained from the note as well as from the mother who was present in the room. This young man was complaining of abdominal discomfort s also later developed some chest pains as well. He was evaluated in the hospital and his EKG was fo und to have extreme rapid rates at 230 beats per minute. IV metoprolol and adenosine eventually abor tiffany the arrhythmia. Subsequently he was admitted. He is being worked up for possible colitis. CT w as suggestive of that, but so far no stool samples obtained. He had not had fevers, chills or no sin gle white cell count elevation. Currently abdomen and chest pains are resolved. He has no PND, orth opnea, lower extremity edema. No fever or chills. No stroke-like symptoms, no neurological deficits except for what is baseline. The rest of the systems otherwise unremarkable. OBJECTIVE: VITAL SIGNS: Blood pressure is 120/75, heart rate 116, respirations 18, temperature 96.4 degrees Fah renheit. GENERAL: Reveals an alert, oriented man who is appropriately responding in no apparent distress. NECK: Supple. Jugular veins not distended. CHEST: Coarse without crackles. CARDIOVASCULAR: Heart sounds are regular to rate and rhythm. No murmur or gallop. ABDOMEN: Benign. Bowel sounds positive. EXTREMITIES: Lower extremities without edema, clubbing or cyanosis. DATABASE: Chest x-ray shows no acute cardiopulmonary process. LABORATORY DATA: White count 4.6, hematocrit 30.9, platelet count is 136. Sodium 138, potassium 3.6 , BUN 7, creatinine 0.67 noted. DATABASE: EKGs reviewed initially revealed a very rapid narrow complex supraventricular tachycardia with rates of 230 beats per minute. PVS seems to be closely following the QRS. Subsequent EKG revea ling sinus rhythm with no preexcitation, a narrow QRS noted. Troponin levels are 0.01. ASSESSMENT AND PLAN: Mr. Ramirez is an unfortunate young man with a history of cerebral palsy, multip le orthopedic surgeries in the past. He has some limited communication, but has increase in some lolly st pains in addition to his baseline abdominal discomfort when associated with his SVT. He did not f eel palpitations. The SVT was clear, terminal ____ seen. From this discussion about the potential mechanism of the arrhythmia, narrow complex SVT, possibly AV jayy reentrant tachycardia with AVR and tachycardia are possible. I have discussed the treatment o ptions including medications versus ablation therapy. I think it is reasonable to proceed with an EP study. For now, there are no overt signs of infection is present. He is not septic, now the sympto ms resolved, reasonable to proceed with the procedure. I have explained the potential chance of infe ction, bleeding, bradycardia requiring pacing to the patient. He understands and is willing to proce ed. Thank you again for allowing me to participate in the care of this patient.
[2017-06-29] MEDS ORDERED: Fentanyl 100 MCG/2 ML VIAL ONE (13:29)
[2017-06-29] MEDS ORDERED: Isoproterenol 0.2 MG/1 ML AMP ONE (13:54)
[2017-06-29] MEDS: metroNIDAZOLE 500 MG TAB PO SCH ×2 (19:37→21:17)
[2017-06-29] MEDS ORDERED: Famotidine 40 MG/4 ML VIAL SLOW IVP PRN (23:45)
--- NOTE | 2017-06-30 01:15 | OP ---
ELECTROPHYSIOLOGY STUDY REPORT REFERRING PHYSICIAN: Bebeto Winston MD REASON FOR PROCEDURE: Mr. Ramirez is a 26-year-old male with prior history of cerebral palsy, normal LVEF, presenting with abdominal discomfort, eventually progressing chest pains. He is noted to have a narrow complex SVT on EKG, which eventually terminated adenosine/diltiazem. He is here for evaluation of his electrical conduction system and possible ablation. PROCEDURE: The patient received deep sedation by Anesthesia specialist with propofol. After adequat e level of sedation achieved, the left femoral venous area was prepped, draped, and anesthetized usin g subcutaneous lidocaine, and with ultrasound guidance, two short sheath was introduced and a octapol ar catheter was advanced to the right ventricle, His bundle and right atrial area. A decapolar josé miguel ter was advanced to the CS position. A comprehensive EP study was performed with the following findi ngs. Baseline cycle length 480 milliseconds at baseline OH 138. QRS is 65 milliseconds, QT 270 mill iseconds, AH 54 milliseconds, HV 43 milliseconds. The AV Wenckebach cycle length was 230 millisecond s, retrograde AV Wenckebach cycle length was 240 milliseconds. Concentric retrograde ventricular act ivation is seen during para-Hisian pacing. Normal prolongation during muscle capture only is seen. With atrial access to my testing, no dual AV jayy physiology was demonstrated. The AV node ERP was 400/180 milliseconds. Ventricular access to my testing was also performed with ventricular ERP demon strated at 380/300/200 milliseconds. The sinus tachycardia, no inducible SVT or ventricular tachycardia was induced at baseline. Fo llowing this, isuprel was administered initially 4 mcg per kg per minute due to lower blood pressures . Phenylephrine was also necessary to support the patient. Following that also, these maneuvers wer e repeated and no tachycardia was inducible. Following that, 8 mcg of per minute. Isuprel was also administered and it was also unsuccessful to induce atrial or ventricular arrhythmia. Finally, the patient's sedation was withdrawn and the electrophysiology study again repeated with sim ilar findings. Occasional aberration during extrastimulus testing is seen with low normal HV interval, no evidence o f accessory pathways found, no dual AV jayy physiology present. Rare echo beats were demonstrated t rober, but no separation of fast or slow pathways were clearly seen. CONCLUSION: 1. Normal sinus and AV jayy function. 2. No evidence of accessory pathway. 3. Normal AV jayy physiology with evidence of dual AV jayy pathways. 4. No SVT or other arrhythmias were induced. PLAN: Continue medical management, possible dose beta blockers could be attempted.
[2017-06-30] MEDS: Sodium Chloride 0.9% 1,000 ML IV SCH (04:05)
[2017-06-30] MEDS: Docusate 100 MG CAP PO SCH (08:11)
[2017-06-30] MEDS: Acetaminophen 325 MG TAB PO PRN (08:11)
[2017-06-30] MEDS: metroNIDAZOLE 500 MG TAB PO SCH (08:13)
[2017-06-30] MEDS: Enoxaparin Sodium 40 MG/0.4 ML SYRINGE SC SCH (08:15)
[2017-06-30] MEDS ORDERED: Ciprofloxacin 500 MG TAB PO SCH ×2 (09:00→20:00)
[2017-06-30] MEDS ORDERED: Carvedilol 3.125 MG TAB PO SCH ×2 (11:30→17:00)
[2017-06-30 11:46] VITALS: BP 110/74; TEMP 98
--- NOTE | 2017-06-30 13:39 | PDOC.CTH ---
<Hali Gomez - Last Filed: 06/30/17 13:37> Cardiology Progress Note - Subjective EP progress note: Patient seen and evaluated. Mother bedside. No new cardiac concerns or complaints overnight. Anticipating DC home later today. - Objective Vital Signs Temp Pulse Resp BP Pulse Ox 06/30/17 11:30 98 F 104 H 18 110/74 98 06/30/17 08:00 97.8 F 125 H 18 06/30/17 07:40 97.8 F 125 H 18 111/59 L 97 06/30/17 03:24 98.0 F 117 H 16 103/60 97 Admit Weight 85 lb Weight 107 lb 12.8 oz 06/29/17 06/30/17 07/01/17 06:59 06:59 06:59 Intake Total 750 Balance 750 - Physical Examination General/Neuro: alert & oriented x3, NAD Neck: carotid US brisk, no JVD present Lungs: CTA, unlabored respirations Heart: PMI normal, RRR Abdomen: NT/ND, soft - Telemetry Telemetry Rhythm: NSR - Labs Result Diagrams: 06/29/17 01:26 06/29/17 01:26 Troponin/CKMB Troponin I Less than 0.010 ng/mL (< 0.028) 06/29/17 01:26 - Assessment/Plan 1. SVT, narrow complex, terminated with adenosine. Now maintaining NSR. 2. s/p EPS: Normal study normal SA & AV node function no accessory pathway normal AV jayy physiology without evidence of dual AV jayy physiology no inducible arrhythmias Recommendations: Continue with beta samir therapy. Continue Toprol Xl 25mg daily if BP remains stable. Otherwise reduce to 12.5mg daily. Routine f/u [facility] 6 weeks [facility]. Ok for discharge by EP <Milton Dior - Last Filed: 06/30/17 16:04> Cardiology Progress Note - Objective Vital Signs Temp Pulse Resp BP Pulse Ox 06/30/17 11:30 98 F 104 H 18 110/74 98 06/30/17 08:00 97.8 F 125 H 18 06/30/17 07:40 97.8 F 125 H 18 111/59 L 97 Admit Weight 85 lb Weight 107 lb 12.8 oz 06/29/17 06/30/17 07/01/17 06:59 06:59 06:59 Intake Total 750 Balance 750 - Labs Result Diagrams: 06/29/17 01:26 06/29/17 01:26 Troponin/CKMB Troponin I Less than 0.010 ng/mL (< 0.028) 06/29/17 01:26 Attending Addendum - Attending Addendum Date/Time: 06/30/17 [id number] I personally evaluated the patient and discussed the management with Ms Gomez. I agree with the History, Examination, Assessment and Plan documented above with any addition or exceptions noted below.
--- NOTE | 2017-06-30 14:30 | EKG ---
Test Reason : Blood Pressure : / mmHG Vent. Rate : 092 BPM Atrial Rate : 092 BPM P-R Int : 116 ms QRS Dur : 082 ms QT Int : 348 ms P-R-T Axes : 063 059 040 degrees QTc Int : 430 ms Normal sinus rhythm with sinus arrhythmia Normal ECG When compared with ECG of 26-JUN-2017 22:51, (Unconfirmed) Vent. rate has decreased BY [address] Jimmie MALDONADO ([id number]) on 06/30/2017 2:29:43 PM Referred By: LANA Confirmed By:DR. Jimmie MALDONADO
--- NOTE | 2017-06-30 18:35 | DIS ---
DATE OF ADMISSION: 06/27/2017 DATE OF DISCHARGE: 06/30/2017 CONDITION AT THE TIME OF DISCHARGE: Stable and improved. PRIMARY CARE PHYSICIAN: Hermann De Souza M.D. DISCHARGE DIAGNOSES: 1. Colitis, likely noninfectious. 2. One episode of supraventricular tachycardia aborted by adenosine without any reoccurrence and neg ative EP study. 3. Cerebral palsy. 4. Sinus tachycardia. DISCHARGE MEDICATION: Metoprolol succinate 12.5 mg p.o. daily. DISCHARGE FOLLOWUP: 1. Gastroenterology, Dr. De La Cruz. 2. Cardiology, Dr. Winston. INHOUSE CONSULTATIONS: 1. Cardiology, Dr. Winston. 2. GI, Dr. De La Cruz. 3. Electrophysiology, Dr. Dior. PROCEDURES DONE IN THE HOSPITAL: 1. CT scan of the abdomen and pelvis which showed significant amount of left-sided colitis involving the rectum extending up to the sigmoid colon and left colon without any renal calculus or obstructio n. 2. Transthoracic echocardiogram which shows EF of 60%-65% and unremarkable echo. 3. Electrophysiology study which did not show any accessory pathways or excitability. It was entire ly normal. HISTORY OF PRESENTING ILLNESS: Mr. Ramirez is a 26-year-old male with history of cerebral palsy and c ognitive disorder who is cared by his mother, who was brought into the hospital with complaints of ab dominal pain of 4-5 days duration. It was associated with nausea and one episode of loose stool with out any vomiting. Upon presentation, he was hemodynamically stable except his heart rate being in th e 120s. CT scan of the abdomen and pelvis was done which showed extensive left-sided colitis. He wa s started on IV fluids and empiric IV antibiotics and cultures were taken. GI was consulted and he w as admitted to medical floor for further evaluation. Please note that in the emergency room, he had one episode of tachycardia which was possibly an arrhy thmia, likely supraventricular tachycardia. He received IV metoprolol and adenosine, which aborted a rrhythmia. For this reason, Cardiology was also consulted. HOSPITAL COURSE: Cardiology saw the patient and recommended EP consultation for the SVT. Dr. Dior s aw the patient and he underwent EP study which was normal. He remained in sinus tachycardic despite IV fluid hydration. He was having on and off chest discomfort and his echo was done and cardiac enzy mes were checked, which were both normal. Now he has been given metoprolol succinate as per Dr. Dior for sinus tachycardia with recommendations for outpatient followup with Cardiology. With regards to his colitis, he was started on IV antibiotics and stool studies were ordered which we re negative. The patient did have an allergic reaction to one of the antibiotics and it had to be st opped. Dr. De La Cruz from GI department saw the patient and he had nothing to offer at this time exc ept maybe an outpatient colonoscopy if his symptoms do not resolve. On the day of discharge, the patient is awake, alert, oriented and his mother is at bedside. I discu ssed his discharge plan in detail with her. She is somewhat distraught and upset as why all of his t est results were normal and we could not find anything. I reassured her that this is actually a good thing that his test results were negative and he does not need any detention care. At this time, he will be discharged as he is hemodynamically stable and there are no other medical issues that need t o be addressed inpatient. He was seen and examined prior to discharge. PHYSICAL EXAMINATION: VITAL SIGNS: This morning includes temperature 98, pulse of 104, respirations 18, saturating 98% on room air, blood pressure 110/74. GENERAL: Acute distress. He is awake, alert, and oriented to self and place. He is very pleasant. CHEST: Clear to auscultation without any wheezing, rales or rhonchi. Rate and rhythm is regular wit hout any murmur, rubs or gallops. ABDOMEN: Soft, nontender and nondistended with positive bowel sounds. Home health was offered to the patient's mother, but she reported that she is in the process of getti ng it approved through the primary care physician for physical therapy and speech therapy. She other salazar sees primary care provider. She is instructed to get a blood pressure monitor to make sure that the patient's blood pressure is not too low before giving him the metoprolol for sinus tachycardia. At this time, she reports that she is unable to afford it until approved by insurance. She was give n a paper prescription for both the medicine and the blood pressure cuff for this reason. She is jacob nning to follow up with the primary care physician. All the outpatient referrals were also given to her. At this time, he will be discharged under the care of his mother back home. She will continue to wor k with the PCP for the home health. All questions were answered. Total time spent in the discharge of this patient 36 minutes.
== END 2017-06-30 13:47 | disposition home or self-care (01) | DRG 392 ==
LOC: ERS 12:36 → OBSVTOIN 06-27 00:06 → 2SE 06-27 00:06
PROVIDERS: ADMIT Internal Medicine; ATTEND Internal Medicine
PROC: 4A023FZ Measurement of Cardiac Rhythm, Percutaneous Approach (ICD-10-PCS; principal; 2017-06-29)
PROC: 4A0234Z Measurement of Cardiac Electrical Activity, Percutaneous Approach (ICD-10-PCS; 2017-06-29)
DX: K52.9 Noninfective gastroenteritis and colitis, unspecified (principal); I47.1 Supraventricular tachycardia; G80.9 Cerebral palsy, unspecified; I95.9 Hypotension, unspecified; Z88.2 Allergy status to sulfonamides; Z88.8 Allergy status to other drugs, medicaments and biological substances; T36.95XA Adverse effect of unspecified systemic antibiotic, initial encounter
CPT/HCPCS: 36415; 51701; 71045; 74018; 74177; 80048; 80053; 81003; 83630; 83690; 84443; 84484; 85025; 87045; 87046; 87324; 87449; 87899; 93005; 93010; 93306; 93613; 93621; 93623; 96361; 96365; 96366; 96368; 96375; 96376; A4216; C1730; C1769; C9113; G8978-GP-CN; G8979-GP-CL; J0153; J0744; J1200; J1644; J1650; J1885; J2001; J2250; J2270; J2550; J2704; J2920; J3010; Q0162

== ENCOUNTER 2018-01-13 22:39 | Emergency (ER) | payer OTHER ==
[2018-01-13 23:12] LABS: #Eosinphils 0.1 thou/uL (0.0-0.7); #Lymphocytes 0.6 thou/uL (1.20-3.40); #Monocytes 0.7 thou/uL (0.11-0.59); #Neutrophils 5.8 thou/uL (1.40-6.50); %Basophils 0.2 % (0.0-1.0); %Eosinophils 1.1 % (0.0-10.0); %Lymphocytes 7.9 % (21.0-51.0); %Monocytes 9.4 % (0.0-10.0); %Neutrophils 81.3 % (42.0-75.0); Hemoglobin 16.9 g/dL (14.0-18.0); Mean Corpuscular HGB CONC 33.4 g/dL (32.0-36.0); Mean Corpuscular Hemoglobin 34.6 pg (27.0-31.0); Mean Platelet Volume 7.5 fL (7.4-10.4); Platelet Count 151 thou/uL (130-400); RBC Distribution Width 12.5 % (11.5-14.5); White Blood Cell (WBC) Count 7.2 thou/uL (4.8-10.8)
[2018-01-13 23:32] LABS: ALT (SGPT) 22 U/L (8-55); AST (SGOT) 26 U/L (5-34); Albumin 4.8 g/dL (3.5-5.0); Alkaline Phosphatase 103 U/L (40-150); Anion Gap 16 mmol/L (10-20); BUN (Urea Nitrogen) 16 mg/dL (8.9-20.6); Bilirubin, Total 1.3 mg/dL (0.2-1.2); CK (CPK) 60 U/L (30-200); Calc. Creatinine Clearance 0 mL/min (70-130); Calcium 9.7 mg/dL (7.8-10.44); Carbon Dioxide 25 mmol/L (22-29); Chloride 99 mmol/L (98-107); Estimated GFR-MDRD Greater than 90; Globulin 3.6 g/dL (2.4-3.5); Glucose 119 mg/dL (70-105); Potassium 3.6 mmol/L (3.5-5.1); Protein, Total 8.4 g/dL (6.0-8.3); Sodium 136 mmol/L (136-145)
[2018-01-13 23:35] LABS: Troponin I Less than 0.010 ng/mL (< 0.028)
--- NOTE | 2018-01-13 23:46 | RAD ---
PORTABLE CHEST: 01/13/18 HISTORY: Chest pain. The lung vyas are clear. No infiltrate or vascular congestion. Heart and mediastinum unremarkable. IMPRESSION: Unremarkable chest. POS: [facility]
[2018-01-14] MEDS ORDERED: Acetaminophen 325 MG TAB ONE (01:56)
[2018-01-14] MEDS ORDERED: Metoprolol Tartrate 5 MG/5 ML VIAL ONE ×2 (01:56→03:07)
== END 2018-01-14 04:02 | disposition home or self-care (01) ==
LOC: ERS 22:39
DX: R07.2 Precordial pain (principal); R00.0 Tachycardia, unspecified
CPT/HCPCS: 36415; 71045; 80053; 82553; 84484; 85025; 85379; 87081; 87430; 87804; 93005; 96361; 96374; 96376

== ENCOUNTER 2019-09-12 07:40 | Outpatient (CLI) | payer OTHER ==
[2019-09-13 12:20] LABS: SARS-CoV-2 MS2 Positive; SARS-CoV-2 N Gene Negative; SARS-CoV-2 S Gene Negative; SARS-CoV-2 orf1ab Negative
== END 2019-09-12 07:41 | disposition home or self-care (01) ==
LOC: LABBT 07:40
PROVIDERS: ATTEND Specialist
DX: Z01.812 Encounter for preprocedural laboratory examination (principal); Z11.59 Encounter for screening for other viral diseases; H70.90 Unspecified mastoiditis, unspecified ear; Z86.69 Personal history of other diseases of the nervous system and sense organs; H90.8 Mixed conductive and sensorineural hearing loss, unspecified; H91.90 Unspecified hearing loss, unspecified ear
CPT/HCPCS: 87635; U0003

== ENCOUNTER 2019-09-15 08:07 | Day surgery (SDC) | payer OTHER ==
[2019-09-15] MEDS ORDERED: Lidocaine 1% w/Epinephrine 1:100K 20 ML VIAL ONE ×2 (09:15→09:51)
[2019-09-15] MEDS ORDERED: PROPOFOL 200 MG/20 ML VIAL ONE (09:36)
[2019-09-15] MEDS ORDERED: Glycopyrrolate 0.2 MG/ML 5 ML SYRINGE ONE (09:36)
[2019-09-15] MEDS ORDERED: Ondansetron PF 4 MG/2 ML Vial ONE (09:36)
[2019-09-15] MEDS ORDERED: Dexamethasone 20 MG/5 ML VIAL ONE (09:36)
[2019-09-15] MEDS ORDERED: Rocuronium Bromide 10 MG/ML (10ML VIAL) ONE (09:36)
[2019-09-15] MEDS ORDERED: EPINEPHrine 1 MG/ML AMP ONE (09:51)
[2019-09-15] MEDS ORDERED: Bacitracin Zinc Ointment 30 gm TUBE ONE ×2 (09:51→10:16)
[2019-09-15] MEDS ORDERED: Bupivacaine 0.25% HCL 30 ML VIAL ONE (09:51)
[2019-09-15] MEDS ORDERED: Fentanyl 100 MCG/2 ML VIAL ONE ×3 (09:59→12:19)
[2019-09-15] MEDS ORDERED: Ciprofloxacin 0.2% Otic 1 DROP CON ONE (10:16)
[2019-09-15] MEDS ORDERED: Ketorolac Tromethamine 30 MG/ML VIAL ONE (12:07)
[2019-09-15] MEDS ORDERED: Morphine 2 MG/ML VIAL ONE (12:07)
--- NOTE | 2019-09-16 13:49 | OP ---
DATE OF PROCEDURE: 09/15/2019 PREOPERATIVE DIAGNOSIS: Left severe conductive hearing loss. POSTOPERATIVE DIAGNOSIS: Left severe conductive hearing loss. PROCEDURE PERFORMED: Implantation of the osseointegrating implant of the temporal bone without mastoidectomy; [place] [address], which is an unlisted code; using binocular microscopy. PROCEDURE IN DETAIL: After consent was obtained, the patient was identified, brought to the operating room and placed on the operating room table in supine position. The area of intended surgery was prepped and draped in a sterile fashion and some of the surrounding hair was trimmed. We then preoperatively did some superficial measurements and marked the site for optical placement of the titanium fixture using the indicator for [employer] and then marked the areolar approximately 50 to 70 mm from the external auditory canal. We then marked the incisions 15 mm from the edge of the implant magnet. We used a needle to measure the tissue thickness of the magnet site and made sure that it was less than 6 mm. We injected the area with 1% lidocaine with 1:100,000 epinephrine for both anesthesia and hemostasis. We made an incision, then down to the periosteum, and used the retractors to expose the implant site in a hemostatic fashion. We then made a cruciate incision in the periosteum at the implant site and we used the Arastatorium to expose a 6 x 6 mm area about for drilling. We then drilled at the implant site with a guide drill, leaving the spacer on at a depth of 3 mm. Good bone was experienced, so we contained to a depth of 4 mm with the guide drill and the spacer removed. We then switched to the widening drill to create our final diameter of 1.4 mm and established a countersink. We then placed the fixture and attached the bone bed indicator to the implant and rotated it clockwise to ensure that it did not touch the bone. We then attached the implant magnet to the implant. We used a soft tissue gauge to confirm the thickness of the flap, it was less than 6 mm, and we placed the flap over the magnet and we sutured and closed the deep levels with 5-0 Monocryl and the skin with 6-0 Prolene. We applied a pressure dressing over the site and then placed a Hettinger dressing for additional pressure and absorbance of any blood and discharge. The patient was then awakened, extubated, taken to recovery room, remained in stable condition prior to discharge home. He was instructed to follow up the following day for dressing removal and site inspection. Job ID: [id number]
== END 2019-09-15 15:30 | disposition home or self-care (01) ==
LOC: SDC 08:07
PROVIDERS: ATTEND Specialist
PROC: 0NH Head and Facial Bones, Insertion (ICD-10-PCS; principal; 2019-09-15)
DX: H90.72 Mixed conductive and sensorineural hearing loss, unilateral, left ear, with unrestricted hearing on the contralateral side (principal); H70.92 Unspecified mastoiditis, left ear; Z86.69 Personal history of other diseases of the nervous system and sense organs; Z79.899 Other long term (current) drug therapy; Z88.1 Allergy status to other antibiotic agents; Z88.2 Allergy status to sulfonamides; Z88.5 Allergy status to narcotic agent; Z91.040 Latex allergy status
CPT/HCPCS: J0171; J1100; J1885; J2270; J2405; J2704; J3010; S0020

== ENCOUNTER 2021-01-29 14:53 | Outpatient (CLI) | payer OTHER ==
[2021-01-29 16:45] LABS: SARS-CoV-2 NAA Rapid Test Not Detected (NotDetected)
== END 2021-01-29 14:54 | disposition home or self-care (01) ==
LOC: LABBT 14:53
PROVIDERS: ATTEND Family Medicine
DX: Z01.812 Encounter for preprocedural laboratory examination (principal); Z20.822 Contact with and (suspected) exposure to COVID-19
CPT/HCPCS: U0002

== ENCOUNTER 2022-04-09 06:31 | Inpatient (IN) | payer OTHER ==
[2022-04-09] MEDS ORDERED: Ondansetron PF 4 MG/2 ML Vial ONE (06:41)
[2022-04-09 07:11] LABS: #Eosinphils 0.1 thou/uL (0.0-0.7); #Lymphocytes 0.6 thou/uL (1.20-3.40); #Monocytes 0.5 thou/uL (0.11-0.59); #Neutrophils 3.5 thou/uL (1.40-6.50); %Basophils 0.4 % (0.0-1.0); %Eosinophils 1.4 % (0.0-10.0); %Lymphocytes 12.2 % (21.0-51.0); %Neutrophils 75.1 % (42.0-75.0); Hemoglobin 15.7 g/dL (14.0-18.0); Mean Corpuscular HGB CONC 34.7 g/dL (32.0-36.0); Mean Corpuscular Hemoglobin 36.9 pg (27.0-31.0); Mean Platelet Volume 8.3 fL (7.4-10.4); Platelet Count 129 10x3/uL (130-400); RBC Distribution Width 12.4 % (11.5-14.5); Red Blood Cell (RBC) Count 4.24 mill/uL (4.70-6.10); White Blood Cell (WBC) Count 4.7 10x3/uL (4.8-10.8)
[2022-04-09 07:22] LABS: ALT (SGPT) 12 U/L (8-55); AST (SGOT) 22 U/L (5-34); Albumin 4.4 g/dL (3.5-5.0); Alkaline Phosphatase 91 U/L (40-110); Anion Gap 15 mmol/L (10-20); BUN (Urea Nitrogen) 14 mg/dL (8.9-20.6); Bilirubin, Total 1.4 mg/dL (0.2-1.2); Calc. Creatinine Clearance 0 mL/min (70-130); Carbon Dioxide 28 mmol/L (22-29); Chloride 100 mmol/L (98-107); Estimated GFR 122; Glucose 111 mg/dL (70-105); Lipase 21 U/L (8-78); Potassium 3.6 mmol/L (3.5-5.1); Protein, Total 7.4 g/dL (6.0-8.3); Sodium 139 mmol/L (136-145)
[2022-04-09] MEDS ORDERED: Promethazine HCl 25 MG in Sodium Chloride 0.9% 50 ML IVPB SCH (07:45)
[2022-04-09] MEDS ORDERED: Morphine 4 MG/ML VIAL ONE (07:56)
[2022-04-09] MEDS ORDERED: Fleet Enema 133 ML BOT PR SCH (08:30)
[2022-04-09] MEDS ORDERED: Iopamidol-370 76% 500 ML 1 ML ONE (08:59)
[2022-04-09] MEDS ORDERED: Pantoprazole 40 MG VIAL ONE (10:06)
[2022-04-09] MEDS ORDERED: diphenhydrAMINE 50 MG/ML VIAL ONE (10:06)
[2022-04-09] MEDS ORDERED: Piperacillin/Tazobactam 3.375 GM VIAL ONE (10:06)
[2022-04-09] MEDS ORDERED: Metoclopramide HCl 10 MG/2 ML VIAL ONE (10:06)
[2022-04-09] MEDS ORDERED: Ondansetron PF 4 MG/2 ML Vial IVP PRN (10:29)
[2022-04-09] MEDS ORDERED: Promethazine HCl 12.5 MG in Sodium Chloride 0.9% 50 ML IVPB PRN (10:32)
[2022-04-09] MEDS ORDERED: Metoprolol Tartrate 5 MG/5 ML VIAL IVP SCH ×2 (10:45→21:00)
[2022-04-09 13:40] VITALS: BMI 18.1
[2022-04-09] MEDS: Dextrose 5%-Lactated Ringers 1,000 ML IV SCH ×2 (14:56→23:19)
[2022-04-09] MEDS ORDERED: Acetaminophen 325 MG TAB ONE (17:53)
[2022-04-09] MEDS ORDERED: Acetaminophen 325 MG/10.15 ML UDCUP ONE (17:55)
[2022-04-09] MEDS: Scopolamine 1.5 mg/72 hour Patch TD SCH (18:00)
[2022-04-09 18:47] LABS: SARS-CoV-2 NAA Rapid Test Not Detected (NotDetected)
[2022-04-09] MEDS: Senokot S 8.6-50 MG TAB PO SCH (22:50)
[2022-04-09] MEDS: Pantoprazole 40 MG VIAL IVP SCH (22:50)
[2022-04-10 04:43] LABS: Hemoglobin 12.2 g/dL (14.0-18.0); Mean Corpuscular HGB CONC 34.1 g/dL (32.0-36.0); Mean Corpuscular Hemoglobin 36.9 pg (27.0-31.0); Mean Platelet Volume 8.2 fL (7.4-10.4); Platelet Count 96 10x3/uL (130-400); RBC Distribution Width 12.5 % (11.5-14.5); Red Blood Cell (RBC) Count 3.32 mill/uL (4.70-6.10); White Blood Cell (WBC) Count 3.1 10x3/uL (4.8-10.8)
[2022-04-10 05:03] LABS: Band 1 % (5-11); Eosinophils 2 % (0-10); Lymphocytes 30 % (21-51); MDiff Complete? YES; Macrocytosis SLIGHT = 6-15 cells (100X) (0-5/hpf); Monocytes 19 % (0-10); Neutrophil 47 % (42-75); Platelet Morphology Comment Appears Decreased
[2022-04-10 05:17] LABS: ALT (SGPT) 14 U/L (8-55); AST (SGOT) 23 U/L (5-34); Albumin 2.9 g/dL (3.5-5.0); Alkaline Phosphatase 58 U/L (40-110); Anion Gap 10 mmol/L (10-20); BUN (Urea Nitrogen) 7 mg/dL (8.9-20.6); Bilirubin, Total 0.4 mg/dL (0.2-1.2); Calc. Creatinine Clearance 97 mL/min (70-130); Calcium 7.2 mg/dL (7.8-10.44); Carbon Dioxide 22 mmol/L (22-29); Chloride 109 mmol/L (98-107); Estimated GFR 132; Globulin 2.1 g/dL (2.4-3.5); Glucose 115 mg/dL (70-105); Potassium 3.5 mmol/L (3.5-5.1); Sodium 137 mmol/L (136-145)
[2022-04-10] MEDS: Dextrose 5%-Lactated Ringers 1,000 ML IV SCH ×2 (07:46→08:50)
[2022-04-10] MEDS: Mineral Oil ENEMA PR SCH ×3 (08:31→08:54)
[2022-04-10] MEDS: Pantoprazole 40 MG VIAL IVP SCH ×2 (08:48→20:21)
[2022-04-10] MEDS: Polyethylene Glycol 3350 17 GM Packet PO SCH ×2 (08:54→20:23)
[2022-04-10] MEDS: Senokot S 8.6-50 MG TAB PO SCH ×2 (08:54→20:23)
[2022-04-10] MEDS ORDERED: Polyethylene Glycol 3350 17 GM Packet PO SCH (09:00)
[2022-04-10] MEDS: Simethicone Chewable 80 MG TAB PO SCH ×3 (10:04→16:14)
[2022-04-10] MEDS: Metoclopramide 10 MG/10 ML UDCUP PO SCH ×3 (10:04→20:21)
[2022-04-11] MEDS: Dextrose 5%-Lactated Ringers 1,000 ML IV SCH ×2 (04:16→11:47)
[2022-04-11 06:59] LABS: Hemoglobin 12.9 g/dL (14.0-18.0); Mean Corpuscular HGB CONC 34.2 g/dL (32.0-36.0); Mean Corpuscular Hemoglobin 37.1 pg (27.0-31.0); Mean Platelet Volume 8.6 fL (7.4-10.4); Platelet Count 87 10x3/uL (130-400); RBC Distribution Width 12.5 % (11.5-14.5); Red Blood Cell (RBC) Count 3.46 mill/uL (4.70-6.10)
[2022-04-11 07:16] LABS: ALT (SGPT) 10 U/L (8-55); AST (SGOT) 16 U/L (5-34); Albumin 2.9 g/dL (3.5-5.0); Alkaline Phosphatase 54 U/L (40-110); Anion Gap 10 mmol/L (10-20); BUN (Urea Nitrogen) 4 mg/dL (8.9-20.6); Bilirubin, Total 0.4 mg/dL (0.2-1.2); Calc. Creatinine Clearance 89 mL/min (70-130); Calcium 7.7 mg/dL (7.8-10.44); Carbon Dioxide 28 mmol/L (22-29); Chloride 106 mmol/L (98-107); Estimated GFR 128; Globulin 2.2 g/dL (2.4-3.5); Glucose 112 mg/dL (70-105); Potassium 3.5 mmol/L (3.5-5.1); Protein, Total 5.1 g/dL (6.0-8.3); Sodium 140 mmol/L (136-145)
[2022-04-11 08:43] LABS: Eosinophils 1 % (0-10); Lymphocytes 31 % (21-51); MDiff Complete? YES; Macrocytosis SLIGHT = 6-15 cells (100X) (0-5/hpf); Monocytes 20 % (0-10); Neutrophil 47 % (42-75); Platelet Morphology Comment Appears Decreased; Polychromasia SLIGHT = 2-3 cells (100X) (0-2/hpf); Reactive Lymphocytes 1 % (0-10)
[2022-04-11] MEDS: Metoclopramide 10 MG/10 ML UDCUP PO SCH ×4 (08:46→20:44)
[2022-04-11] MEDS: Simethicone Chewable 80 MG TAB PO SCH ×3 (08:50→17:37)
[2022-04-11] MEDS: Senokot S 8.6-50 MG TAB PO SCH ×2 (08:50→20:45)
[2022-04-11] MEDS: Pantoprazole 40 MG VIAL IVP SCH ×2 (08:57→20:45)
[2022-04-11] MEDS: Polyethylene Glycol 3350 17 GM Packet PO SCH ×2 (09:00→20:45)
[2022-04-11] MEDS: Acetaminophen 325 MG TAB PO PRN ×2 (11:51→20:58)
[2022-04-11] MEDS: Benzonatate 100 MG CAP PO PRN ×2 (17:37→20:58)
[2022-04-12] MEDS: Dextrose 5%-Lactated Ringers 1,000 ML IV SCH ×2 (04:04→15:03)
[2022-04-12 07:39] LABS: ALT (SGPT) 9 U/L (8-55); AST (SGOT) 18 U/L (5-34); Albumin 3.1 g/dL (3.5-5.0); Alkaline Phosphatase 54 U/L (40-110); Anion Gap 10 mmol/L (10-20); BUN (Urea Nitrogen) Less than 4 mg/dL (8.9-20.6); Bilirubin, Total 0.5 mg/dL (0.2-1.2); Calc. Creatinine Clearance 97 mL/min (70-130); Calcium 7.9 mg/dL (7.8-10.44); Carbon Dioxide 28 mmol/L (22-29); Chloride 105 mmol/L (98-107); Estimated GFR 132; Globulin 2.1 g/dL (2.4-3.5); Glucose 104 mg/dL (70-105); Magnesium 1.5 mg/dL (1.6-2.6); Potassium 3.4 mmol/L (3.5-5.1); Protein, Total 5.2 g/dL (6.0-8.3); Sodium 140 mmol/L (136-145)
[2022-04-12 07:41] LABS: Mean Corpuscular HGB CONC 33.2 g/dL (32.0-36.0); Mean Corpuscular Hemoglobin 36.5 pg (27.0-31.0); Mean Platelet Volume 8.7 fL (7.4-10.4); Platelet Count 96 10x3/uL (130-400); RBC Distribution Width 12.5 % (11.5-14.5); Red Blood Cell (RBC) Count 3.56 mill/uL (4.70-6.10); White Blood Cell (WBC) Count 3.1 10x3/uL (4.8-10.8)
[2022-04-12] MEDS: Senokot S 8.6-50 MG TAB PO SCH ×2 (08:57→20:28)
[2022-04-12] MEDS: Pantoprazole 40 MG VIAL IVP SCH ×2 (08:57→20:29)
[2022-04-12] MEDS: Polyethylene Glycol 3350 17 GM Packet PO SCH ×2 (08:57→20:27)
[2022-04-12] MEDS: Simethicone Chewable 80 MG TAB PO SCH ×3 (08:57→16:33)
[2022-04-12] MEDS: Metoclopramide 10 MG/10 ML UDCUP PO SCH ×4 (08:57→20:36)
[2022-04-12 09:23] LABS: Lymphocytes 41 % (21-51); MDiff Complete? YES; Macrocytosis MODERATE=16-30 cells (100X) (0-5/hpf); Monocytes 24 % (0-10); Neutrophil 35 % (42-75); Platelet Morphology Comment Appears Decreased
[2022-04-12] MEDS: Scopolamine 1.5 mg/72 hour Patch TD SCH (11:46)
[2022-04-12] MEDS ORDERED: Mineral Oil ENEMA PR PRN (12:22)
[2022-04-12] MEDS ORDERED: Magnesium 2 GM/50 ML(in water) 2 GM in Premix Bag 1 BAG IVPB SCH (12:30)
[2022-04-12] MEDS ORDERED: Potassium Bicarbonate/Cit Ac 20 MEQ TAB PO SCH (12:30)
[2022-04-12] MEDS: Acetaminophen 325 MG TAB PO PRN (20:29)
[2022-04-12] MEDS ORDERED: HYDROcodone/Acetaminophen 5/325 mg Tablet PO SCH (22:30)
[2022-04-13] MEDS ORDERED: traMADol HCl 50 MG TAB PO SCH (01:00)
[2022-04-13 01:33] LABS: Troponin I Less than 0.010 ng/mL (< 0.028)
[2022-04-13] MEDS: Dextrose 5%-Lactated Ringers 1,000 ML IV SCH ×2 (04:21→15:44)
[2022-04-13] MEDS: Acetaminophen 325 MG TAB PO PRN ×3 (05:43→23:24)
[2022-04-13] MEDS: Ondansetron ODT 4 MG TAB PO PRN ×2 (05:44→10:47)
[2022-04-13 07:57] LABS: Hemoglobin 13.7 g/dL (14.0-18.0); Mean Corpuscular HGB CONC 33.3 g/dL (32.0-36.0); Mean Corpuscular Hemoglobin 36.5 pg (27.0-31.0); RBC Distribution Width 12.4 % (11.5-14.5); Red Blood Cell (RBC) Count 3.75 mill/uL (4.70-6.10)
[2022-04-13 08:02] LABS: ALT (SGPT) 13 U/L (8-55); AST (SGOT) 19 U/L (5-34); Albumin 3.3 g/dL (3.5-5.0); Alkaline Phosphatase 58 U/L (40-110); Anion Gap 12 mmol/L (10-20); BUN (Urea Nitrogen) 4 mg/dL (8.9-20.6); Bilirubin, Total 0.6 mg/dL (0.2-1.2); Calc. Creatinine Clearance 87 mL/min (70-130); Calcium 7.8 mg/dL (7.8-10.44); Carbon Dioxide 27 mmol/L (22-29); Chloride 104 mmol/L (98-107); Estimated GFR 128; Globulin 2.3 g/dL (2.4-3.5); Glucose 98 mg/dL (70-105); Magnesium 1.9 mg/dL (1.6-2.6); Potassium 3.9 mmol/L (3.5-5.1); Protein, Total 5.6 g/dL (6.0-8.3); Sodium 139 mmol/L (136-145)
[2022-04-13] MEDS ORDERED: Morphine 2 MG/ML VIAL SLOW IVP PRN (08:10)
[2022-04-13] MEDS ORDERED: FLU VACC QS2022-23(6MOS UP)/PF 60 MCG/0.5 ML SYRINGE IM ONE (09:00)
[2022-04-13] MEDS: Polyethylene Glycol 3350 17 GM Packet PO SCH ×2 (09:02→20:27)
[2022-04-13] MEDS: Simethicone Chewable 80 MG TAB PO SCH ×3 (09:02→16:41)
[2022-04-13] MEDS: Dicyclomine 10 MG CAP PO SCH ×4 (09:03→20:27)
[2022-04-13] MEDS: Senokot S 8.6-50 MG TAB PO SCH ×2 (09:03→20:27)
[2022-04-13 09:14] LABS: Lymphocytes 38 % (21-51); MDiff Complete? YES; Macrocytosis SLIGHT = 6-15 cells (100X) (0-5/hpf); Mean Platelet Volume 8.1 fL (7.4-10.4); Monocytes 20 % (0-10); Neutrophil 42 % (42-75); Platelet Count 128 10x3/uL (130-400); Platelet Morphology Comment Appears Decreased; Vacuoles SLIGHT; White Blood Cell (WBC) Count 4.1 10x3/uL (4.8-10.8)
[2022-04-14 06:34] LABS: ALT (SGPT) 13 U/L (8-55); AST (SGOT) 23 U/L (5-34); Albumin 3.6 g/dL (3.5-5.0); Alkaline Phosphatase 68 U/L (40-110); Anion Gap 13 mmol/L (10-20); BUN (Urea Nitrogen) 5 mg/dL (8.9-20.6); Band 3 % (5-11); Bilirubin, Total 0.5 mg/dL (0.2-1.2); Calc. Creatinine Clearance 83 mL/min (70-130); Calcium 8.4 mg/dL (7.8-10.44); Carbon Dioxide 27 mmol/L (22-29); Chloride 103 mmol/L (98-107); Eosinophils 1 % (0-10); Estimated GFR 126; Globulin 2.7 g/dL (2.4-3.5); Glucose 90 mg/dL (70-105); Hemoglobin 14.8 g/dL (14.0-18.0); Lymphocytes 10 % (21-51); MDiff Complete? YES; Macrocytosis SLIGHT = 6-15 cells (100X) (0-5/hpf); Mean Corpuscular HGB CONC 33.9 g/dL (32.0-36.0); Mean Corpuscular Hemoglobin 37.4 pg (27.0-31.0); Mean Platelet Volume 9.2 fL (7.4-10.4); Monocytes 14 % (0-10); Neutrophil 70 % (42-75); Platelet Count 125 10x3/uL (130-400); Platelet Morphology Comment Appears Decreased; Potassium 4.2 mmol/L (3.5-5.1); Protein, Total 6.3 g/dL (6.0-8.3); RBC Distribution Width 12.4 % (11.5-14.5); Reactive Lymphocytes 2 % (0-10); Red Blood Cell (RBC) Count 3.95 mill/uL (4.70-6.10); Sodium 139 mmol/L (136-145); White Blood Cell (WBC) Count 5.5 10x3/uL (4.8-10.8)
[2022-04-14] MEDS: Polyethylene Glycol 3350 17 GM Packet PO SCH (08:37)
[2022-04-14] MEDS: Simethicone Chewable 80 MG TAB PO SCH ×3 (08:38→18:10)
[2022-04-14] MEDS: Senokot S 8.6-50 MG TAB PO SCH (08:38)
[2022-04-14] MEDS: Dextrose 5%-Lactated Ringers 1,000 ML IV SCH ×2 (09:15→20:08)
[2022-04-14] MEDS ORDERED: Iopamidol-370 76% 500 ML 1 ML ONE (10:39)
[2022-04-14 21:52] VITALS: BP 117/84; TEMP 99.2
== END 2022-04-14 21:50 | disposition home or self-care (01) | DRG 389 ==
LOC: ERS 06:31 → ERHOLD 11:19 → 2NO 20:38 → T4-A 04-10 14:08
PROVIDERS: ADMIT Family Medicine; ATTEND Internal Medicine
DX: K56.41 Fecal impaction (principal); D62 Acute posthemorrhagic anemia; E46 Unspecified protein-calorie malnutrition; I47.1 Supraventricular tachycardia; Z68.1 Body mass index [BMI] 19.9 or less, adult; K52.89 Other specified noninfective gastroenteritis and colitis; G80.9 Cerebral palsy, unspecified; Z91.040 Latex allergy status; Z88.2 Allergy status to sulfonamides; Z88.1 Allergy status to other antibiotic agents; Z88.5 Allergy status to narcotic agent; Z79.899 Other long term (current) drug therapy; Z74.01 Bed confinement status; Z99.3 Dependence on wheelchair
CPT/HCPCS: 36415; 36416; 74018; 74177; 80053; 82271; 82607; 83690; 83735; 84484; 85025; 93005; 93010; 96361; 96365; 96375; C9113; J1200; J2270; J2405; J2543; J2550; J2765; J3475; Q0162; Q9967

== ENCOUNTER 2022-04-16 03:04 | Emergency (ER) | payer OTHER ==
[2022-04-16 04:31] LABS: #Eosinphils 0.1 thou/uL (0.0-0.7); #Lymphocytes 0.9 thou/uL (1.20-3.40); #Monocytes 0.8 thou/uL (0.11-0.59); %Basophils 0.4 % (0.0-1.0); %Eosinophils 1.3 % (0.0-10.0); %Lymphocytes 15.1 % (21.0-51.0); %Monocytes 14.6 % (0.0-10.0); %Neutrophils 68.6 % (42.0-75.0); Hemoglobin 14.5 g/dL (14.0-18.0); Mean Corpuscular Hemoglobin 36.9 pg (27.0-31.0); Mean Platelet Volume 8.2 fL (7.4-10.4); Platelet Count 161 10x3/uL (130-400); RBC Distribution Width 12.3 % (11.5-14.5); Red Blood Cell (RBC) Count 3.92 mill/uL (4.70-6.10); White Blood Cell (WBC) Count 5.8 10x3/uL (4.8-10.8)
[2022-04-16 04:52] LABS: ALT (SGPT) 13 U/L (8-55); AST (SGOT) 21 U/L (5-34); Albumin 4.1 g/dL (3.5-5.0); Alkaline Phosphatase 86 U/L (40-110); Anion Gap 16 mmol/L (10-20); BUN (Urea Nitrogen) 15 mg/dL (8.9-20.6); Bilirubin, Total 0.5 mg/dL (0.2-1.2); Calc. Creatinine Clearance 0 mL/min (70-130); Calcium 8.2 mg/dL (7.8-10.44); Carbon Dioxide 28 mmol/L (22-29); Chloride 99 mmol/L (98-107); Estimated GFR 124; Globulin 2.7 g/dL (2.4-3.5); Glucose 88 mg/dL (70-105); Lipase 69 U/L (8-78); Potassium 4.2 mmol/L (3.5-5.1); Protein, Total 6.8 g/dL (6.0-8.3); Sodium 139 mmol/L (136-145)
== END 2022-04-16 06:00 | disposition home or self-care (01) ==
LOC: ERS 03:04
DX: K52.9 Noninfective gastroenteritis and colitis, unspecified (principal); R42 Dizziness and giddiness
CPT/HCPCS: 36415; 74176; 80053; 83690; 85025; 99284

== ENCOUNTER 2022-10-16 22:09 | Observation (INO) | payer OTHER ==
[~2022-10-16 22:09] MED LIST: Iopamidol-370 76% 500 ML MDV (1 ML CHARGE) ONE
[2022-10-16 22:41] LABS: #Eosinphils 0.1 thou/uL (0.0-0.7); #Monocytes 0.5 thou/uL (0.11-0.59); #Neutrophils 3.5 thou/uL (1.40-6.50); %Basophils 0.2 % (0.0-1.0); %Eosinophils 1.2 % (0.0-10.0); %Lymphocytes 4.3 % (21.0-51.0); %Monocytes 11.4 % (0.0-10.0); %Neutrophils 82.4 % (42.0-75.0); Hematocrit 39.7 % (42.0-52.0); Hemoglobin 13.9 g/dL (14.0-18.0); Mean Corpuscular Hemoglobin 35.5 pg (27.0-31.0); Mean Corpuscular Volume 101.5 fl (78.0-98.0); Mean Platelet Volume 9.8 fL (7.4-10.4); Platelet Count 126 10x3/uL (130-400); RBC Distribution Width 13.1 % (11.5-14.5); Red Blood Cell (RBC) Count 3.91 mill/uL (4.70-6.10); White Blood Cell (WBC) Count 4.2 10x3/uL (4.8-10.8)
[2022-10-16] MEDS ORDERED: Cefepime 1 GM VIAL ONE (22:54)
[2022-10-16] MEDS ORDERED: Ondansetron PF 4 MG/2 ML Vial ONE (22:54)
[2022-10-16] MEDS ORDERED: Vancomycin 1 GM/200 ML (FROZEN) BAG ONE (22:55)
[2022-10-16] MEDS ORDERED: Cefepime 2 GM VIAL ONE (22:55)
[2022-10-16 23:05] LABS: ALT (SGPT) 29 U/L (8-55); AST (SGOT) 42 U/L (5-34); Albumin 4.2 g/dL (3.5-5.0); Alkaline Phosphatase 90 U/L (40-110); Anion Gap 14 mmol/L (10-20); BUN (Urea Nitrogen) 13 mg/dL (8.9-20.6); Bilirubin, Total 0.6 mg/dL (0.2-1.2); Calc. Creatinine Clearance 0 mL/min (70-130); Calcium 8.9 mg/dL (7.8-10.44); Carbon Dioxide 25 mmol/L (22-29); Chloride 102 mmol/L (98-107); Estimated GFR 120; Globulin 2.8 g/dL (2.4-3.5); Glucose 124 mg/dL (70-105); Potassium 3.6 mmol/L (3.5-5.1); Sodium 137 mmol/L (136-145)
[2022-10-16] MEDS ORDERED: Ketorolac Tromethamine 30 MG/ML VIAL ONE (23:26)
[2022-10-17 00:39] LABS: SARS-CoV-2 NAA Rapid Test DETECTED (NotDetected)
[2022-10-17 00:39] LABS: Bacteria/HPF None Seen HPF (None Seen); Bilirubin Negative (Negative); Blood, Urine Negative (Negative); CAUTI Indications for Culture Fever or rigors; Clarity Clear (Clear); Glucose, Urine (Dipstick) Normal (Negative); Ketone, Urine Negative (Negative); Leukocyte Negative Leu/uL (Negative); Nitrite Negative (Negative); Protein, Urine (Dipstick) Negative (Neg-Trace); RBC/HPF 0-3 HPF (0-3); Specific Gravity, Urine 1.028 (1.002-1.036); Squamous Epithelial None Seen HPF (0-3); Urobilinogen Normal mg/dL (Less than 2); WBC/HPF 0-3 HPF (0-3); pH, Urine 5.5 (5.0-9.0)
[2022-10-17 00:40] LABS: Urine Culture Reflex No No
[2022-10-17 01:29] LABS: Troponin I Less than 0.010 ng/mL (< 0.028)
[2022-10-17] MEDS ORDERED: Senokot S 8.6-50 MG TAB PO PRN (01:50)
[2022-10-17] MEDS ORDERED: Mineral Oil ENEMA PR PRN (01:51)
[2022-10-17] MEDS ORDERED: Lactated Ringer's 1,000 ML IV SCH (02:00)
[2022-10-17] MEDS ORDERED: Ondansetron PF 4 MG/2 ML Vial ONE (02:58)
[2022-10-17 04:23] LABS: Anion Gap 14 mmol/L (10-20); BUN (Urea Nitrogen) 11 mg/dL (8.9-20.6); Calc. Creatinine Clearance 99 mL/min (70-130); Carbon Dioxide 17 mmol/L (22-29); Chloride 106 mmol/L (98-107); Estimated GFR 123; Glucose 123 mg/dL (70-105); Potassium 3.8 mmol/L (3.5-5.1); Sodium 133 mmol/L (136-145)
[2022-10-17] MEDS ORDERED: Famotidine 20 MG TAB ONE (08:49)
[2022-10-17] MEDS: Polyethylene Glycol 3350 17 GM Packet PO SCH ×2 (09:19→20:18)
[2022-10-17] MEDS: Dicyclomine 10 MG CAP PO SCH ×3 (09:19→17:45)
[2022-10-17] MEDS: Simethicone Chewable 80 MG TAB PO SCH ×3 (09:19→17:47)
[2022-10-17] MEDS: Famotidine 20 MG TAB PO SCH ×2 (09:20→20:17)
[2022-10-17] MEDS: Senokot S 8.6-50 MG TAB PO SCH ×2 (09:20→20:18)
[2022-10-17 09:56] LABS: Hematocrit 37.4 % (42.0-52.0); Hemoglobin 12.8 g/dL (14.0-18.0); Manual Diff?? YES; Mean Corpuscular HGB CONC 34.2 g/dL (32.0-36.0); Mean Corpuscular Hemoglobin 35.5 pg (27.0-31.0); Mean Corpuscular Volume 103.6 fl (78.0-98.0); Mean Platelet Volume 10.4 fL (7.4-10.4); Platelet Count 99 10x3/uL (130-400); Red Blood Cell (RBC) Count 3.61 mill/uL (4.70-6.10); White Blood Cell (WBC) Count 1.6 10x3/uL (4.8-10.8)
[2022-10-17 09:59] LABS: Delete Auto Diff?? YES
[2022-10-17 10:40] LABS: Anisocytosis MODERATE=16-30 cells HPF (0-5); Band 3 % (5-11); Burr Cells SLIGHT = 2-5 cells HPF (0-1); CellaVision Operator ID LAB.CMB; Lymphocytes 9 % (21-51); Macrocytosis MODERATE=16-30 cells HPF (0-5); Monocytes 16 % (0-10); Neutrophil 68 % (42-75); Platelet Adequacy Comment Platelets Decreased; Reactive Lymphocytes 2 % (0-10); Total Cell Count 101
[2022-10-17 11:46] VITALS: BMI 19.0
[2022-10-17] MEDS: Ondansetron ODT 4 MG TAB PO PRN ×2 (13:03→19:19)
[2022-10-17] MEDS: Acetaminophen 325 MG TAB PO PRN ×2 (13:41→20:17)
[2022-10-17] MEDS ORDERED: Phenol 118 ML BOT PO PRN (15:47)
[2022-10-17] MEDS ORDERED: Guaifenesin DM 100-10/5 ML UDCUP PO PRN (15:47)
[2022-10-18] MEDS ORDERED: Melatonin 3 MG TAB PO PRN (00:20)
[2022-10-18 05:04] LABS: Hematocrit 37.4 % (42.0-52.0); Hemoglobin 12.6 g/dL (14.0-18.0); Manual Diff?? YES; Mean Corpuscular HGB CONC 33.7 g/dL (32.0-36.0); Mean Corpuscular Hemoglobin 34.9 pg (27.0-31.0); Mean Corpuscular Volume 103.6 fl (78.0-98.0); Mean Platelet Volume 10.6 fL (7.4-10.4); RBC Distribution Width 13.1 % (11.5-14.5); Red Blood Cell (RBC) Count 3.61 mill/uL (4.70-6.10); White Blood Cell (WBC) Count 1.7 10x3/uL (4.8-10.8)
[2022-10-18 05:07] LABS: Platelet Count 70 10x3/uL (130-400)
[2022-10-18 05:08] LABS: Delete Auto Diff?? YES
[2022-10-18 05:35] LABS: Anion Gap 12 mmol/L (10-20); BUN (Urea Nitrogen) 11 mg/dL (8.9-20.6); Calc. Creatinine Clearance 89 mL/min (70-130); Carbon Dioxide 24 mmol/L (22-29); Chloride 104 mmol/L (98-107); Estimated GFR 125; Glucose 91 mg/dL (70-105); Potassium 3.9 mmol/L (3.5-5.1); Sodium 136 mmol/L (136-145)
[2022-10-18 05:44] LABS: Band 4 % (5-11); CellaVision Operator ID lab.abc; Lymphocytes 29 % (21-51); Monocytes 16 % (0-10); Neutrophil 52 % (42-75); Platelet Adequacy Comment Platelets Decreased; RBC Morphology Within Normal Limits; Smudge Cells 27.7 %; Total Cell Count 101
[2022-10-18] MEDS ORDERED: Sodium Chloride 0.9% 500 ML IV SCH (08:30)
[2022-10-18] MEDS: Senokot S 8.6-50 MG TAB PO SCH (09:38)
[2022-10-18] MEDS: Simethicone Chewable 80 MG TAB PO SCH ×2 (09:38→12:41)
[2022-10-18] MEDS: Polyethylene Glycol 3350 17 GM Packet PO SCH (10:04)
[2022-10-18] MEDS: Famotidine 20 MG TAB PO SCH (10:05)
[2022-10-18 11:02] VITALS: BP 99/63; TEMP 98.3
[2022-10-18] MEDS: Acetaminophen 325 MG TAB PO PRN (12:41)
== END 2022-10-18 16:30 | disposition home or self-care (01) ==
LOC: ERS 22:09 → ERHOLD 10-17 01:53 → 2SE 10-17 10:51
PROVIDERS: ADMIT Student in an Organized Health Care Education/Training Program; ATTEND Internal Medicine
DX: A41.9 Sepsis, unspecified organism (principal); U07.1 COVID-19; G80.9 Cerebral palsy, unspecified; K59.00 Constipation, unspecified; Z91.040 Latex allergy status; Z88.2 Allergy status to sulfonamides; Z88.1 Allergy status to other antibiotic agents; Z88.6 Allergy status to analgesic agent; Z79.899 Other long term (current) drug therapy
CPT/HCPCS: 36415; 51701; 71045; 74177; 80048; 80053; 81001; 83605; 83880; 84484; 85025; 85379; 87040; 87086; 93005; 96365; 96366; 96368; 96375; 96376; G0378; J0692; J1885; J2405; J3370-JW; J7030; J7120; Q0162; Q9967; U0002

== ENCOUNTER 2024-01-16 00:04 | Inpatient (IN) | payer OTHER ==
[2024-01-16] MEDS ORDERED: Ketorolac Tromethamine 30 MG (1 mL) VIAL ONE (02:28)
[2024-01-16 02:49] LABS: #Basophils 0.03 10x3/uL (0.0-0.2); %Basophils 0.4 % (0.0-1.0); %Eosinophils 0.6 % (0.0-10.0); %Lymphocytes 10.8 % (21.0-51.0); Hematocrit 41.8 % (42.0-52.0); Hemoglobin 14.4 g/dL (14.0-18.0); Mean Corpuscular HGB CONC 34.4 g/dL (32.0-36.0); Mean Corpuscular Hemoglobin 35.3 pg (27.0-31.0); Mean Corpuscular Volume 102.5 fL (78.0-98.0); Mean Platelet Volume 9.7 fL (7.4-10.4); Platelet Count 158 10x3/uL (130-400); Red Blood Cell (RBC) Count 4.08 mill/uL (4.70-6.10)
[2024-01-16 03:04] LABS: ALT (SGPT) 15 U/L (8-55); AST (SGOT) 20 U/L (5-34); Albumin 3.8 g/dL (3.5-5.0); Alkaline Phosphatase 99 U/L (40-110); Anion Gap 13 mmol/L (10-20); BUN (Urea Nitrogen) 23 mg/dL (8.9-20.6); Bilirubin, Total 0.5 mg/dL (0.2-1.2); Calc. Creatinine Clearance 0 mL/min (70-130); Calcium 8.8 mg/dL (7.8-10.44); Carbon Dioxide 24 mmol/L (22-29); Chloride 105 mmol/L (98-107); Estimated GFR 117; Globulin 3.3 g/dL (2.4-3.5); Glucose 115 mg/dL (70-105); Potassium 3.8 mmol/L (3.5-5.1); Protein, Total 7.1 g/dL (6.0-8.3); Sodium 138 mmol/L (136-145)
[2024-01-16] MEDS ORDERED: diphenhydrAMINE 50 MG/ML VIAL ONE (03:37)
[2024-01-16] MEDS ORDERED: Ondansetron PF 4 MG/2 ML Vial ONE (03:46)
[2024-01-16 04:51] LABS: Bacteria/HPF None Seen HPF (None Seen); Bilirubin Negative (Negative); Blood, Urine Negative (Negative); CAUTI Indications for Culture Dysuria,urgency,freq; Clarity Clear (Clear); Glucose, Urine (Dipstick) Normal (Negative); Ketone, Urine Negative (Negative); Leukocyte Negative Leu/uL (Negative); Nitrite Negative (Negative); Protein, Urine (Dipstick) Negative (Neg-Trace); RBC/HPF 0-3 HPF (0-3); Squamous Epithelial 0-3 HPF (0-3); Urobilinogen Normal mg/dL (Less than 2); WBC/HPF 0-3 HPF (0-3); pH, Urine 6.5 (5.0-9.0)
[2024-01-16 04:52] LABS: Urine Culture Reflex No No
[2024-01-16] MEDS ORDERED: Dextrose 5% in Water 1,000 ML IV PRN (05:27)
[2024-01-16] MEDS ORDERED: Acetaminophen 500 MG TAB ONE (06:02)
[2024-01-16] MEDS ORDERED: Morphine 4 MG/ML VIAL ONE (06:02)
[2024-01-16] MEDS: HYDROcodone/Acetaminophen 5/325 mg Tablet PO PRN (08:34)
[2024-01-16] MEDS ORDERED: Magnevist 469MG/ML 20 ML VIAL ONE (13:15)
[2024-01-16] MEDS: Methocarbamol 500 MG TAB PO SCH (14:41)
[2024-01-16] MEDS: FLU (Fluarix Triv) TS24-25(6MOS UP)/PF 45 MCG/0.5 ML Syringe IM ONE (14:42)
[2024-01-16] MEDS ORDERED: cloNIDine 0.1 MG TAB PO PRN (17:23)
[2024-01-16] MEDS: Ondansetron ODT 4 MG TAB PO PRN (19:20)
[2024-01-16] MEDS: Ibuprofen 600 MG TAB PO PRN (21:11)
[2024-01-16] MEDS: Promethazine HCl 25 MG/ML VIAL IM SCH (21:11)
[2024-01-16] MEDS: Senokot S 8.6-50 MG TAB PO SCH (21:12)
[2024-01-17] MEDS: Lactated Ringer's 500 ML IV SCH (12:40)
[2024-01-18] MEDS: Enoxaparin 30 MG (0.3 mL) SYRINGE SC SCH (08:45)
[2024-01-18] MEDS: Acetaminophen 325 MG TAB PO PRN (08:46)
[2024-01-18] MEDS: Acetaminophen/Codeine 30-300mg Tablet PO PRN (12:24)
[2024-01-19 15:59] VITALS: BMI 26.8
[2024-01-19 21:26] VITALS: BP 123/75; TEMP 97.8
== END 2024-01-20 18:00 | disposition home or self-care (01) | DRG 563 ==
LOC: ERS 00:04 → SURG B 05:47
PROVIDERS: ADMIT Surgery; ATTEND Surgery
DX: S82.202A Unspecified fracture of shaft of left tibia, initial encounter for closed fracture (principal); G80.9 Cerebral palsy, unspecified; Z88.8 Allergy status to other drugs, medicaments and biological substances; Z91.040 Latex allergy status; Z88.2 Allergy status to sulfonamides; Z91.048 Other nonmedicinal substance allergy status; Z99.3 Dependence on wheelchair; Z79.899 Other long term (current) drug therapy; Z88.5 Allergy status to narcotic agent; X50.9XXA Other and unspecified overexertion or strenuous movements or postures, initial encounter; Y93.89 Activity, other specified; Y92.89 Other specified places as the place of occurrence of the external cause
CPT/HCPCS: 71045; 80053; 81001; 83605; 85025; 87040; 87086; 93005; 96374; 96375; G0390; J1200; J1650; J1885; J2272; J2405; J2550; J7120; Q0162

== ENCOUNTER 2024-12-31 00:29 | Inpatient (IN) | payer MEDICAID ==
[2024-12-31 01:02] LABS: #Basophils 0.03 10x3/uL (0.0-0.2); #Eosinophils 0.16 10x3/uL (0.0-0.7); #Monocytes 1.48 10x3/uL (0.11-0.59); #Neutrophils 6.03 10x3/uL (1.40-6.50); %Basophils 0.4 % (0.0-1.0); %Eosinophils 1.9 % (0.0-10.0); %Lymphocytes 7.5 % (21.0-51.0); %Monocytes 17.7 % (0.0-10.0); %Neutrophils 72.3 % (42.0-75.0); Hematocrit 43.2 % (42.0-52.0); Hemoglobin 14.5 g/dL (14.0-18.0); Mean Corpuscular Hemoglobin 34.5 pg (27.0-31.0); Mean Corpuscular Volume 102.9 fL (78.0-98.0); Platelet Count 146 10x3/uL (130-400); Red Blood Cell (RBC) Count 4.20 mill/uL (4.70-6.10); White Blood Cell (WBC) Count 8.35 10x3/uL (4.8-10.8)
[2024-12-31 01:13] LABS: ALT (SGPT) 15 U/L (Less than 45); AST (SGOT) 24 U/L (11-34); Albumin 3.5 g/dL (3.1-4.5); Alkaline Phosphatase 101 U/L (40-110); Anion Gap 16 mmol/L (10-20); BUN (Urea Nitrogen) 16 mg/dL (8.9-20.6); Bilirubin, Total 0.8 mg/dL (0.3-1.2); Calc. Creatinine Clearance 0 mL/min (70-130); Calcium 9.0 mg/dL (7.8-10.44); Carbon Dioxide 22 mmol/L (22-29); Chloride 102 mmol/L (98-107); Globulin 3.9 g/dL (2.4-3.5); Glucose 108 mg/dL (70-105); Potassium 3.6 mmol/L (3.5-5.1); Sodium 136 mmol/L (136-145)
[2024-12-31] MEDS ORDERED: cefTRIAXone (ROCEPHIN) 1 GM VIAL ONE (01:18)
[2024-12-31] MEDS ORDERED: Ondansetron PF 4 MG/2 ML Vial ONE (01:18)
[2024-12-31 01:49] LABS: Actual Bicarbonate (HCO3v) 22.0 mEq/L (22-28); Base Excess -0.4 mEq/L (-2.0 to +3.0); Calcium, Ionized (venous) 1.04 mmol/L (1.16-1.32); Chloride (VBG) 101 mmol/L (98-106); Hematocrit-VBG 45 % (42.0-52.0); Hemoglobin (Hb) 15.4 g/dL (13.2-17.3); Potassium (VBG) 3.51 mmol/L (3.70-5.30); Sodium 137 mmol/L (133-146)
[2024-12-31 02:03] LABS: Bacteria/HPF None Seen HPF (None Seen); CAUTI Indications for Culture Dysuria,urgency,freq; Glucose, Urine (Dipstick) Normal (Negative); Leukocyte 25 Leu/uL (Negative); Protein, Urine (Dipstick) 70 mg/dL (Neg-Trace); Specific Gravity, Urine 1.048 (1.002-1.036)
[2024-12-31 02:04] LABS: Urine Culture Reflex No No
[2024-12-31] MEDS ORDERED: Azithromycin 500 MG VIAL ONE (04:01)
[2024-12-31] MEDS ORDERED: Acetaminophen 325 MG TAB PO PRN (06:37)
[2024-12-31] MEDS ORDERED: Ondansetron PF 4 MG/2 ML Vial IVP PRN (06:37)
[2024-12-31] MEDS ORDERED: Calcium Carbonate 500 MG ChewTAB PO PRN (06:37)
[2024-12-31 06:49] VITALS: BMI 28.1
[2024-12-31] MEDS: Enoxaparin 40 MG (0.4 mL) SYRINGE SC SCH (09:14)
[2024-12-31] MEDS: Pantoprazole 40 MG DR.TAB PO SCH (09:14)
[2024-12-31] MEDS ORDERED: Iopamidol-370 76% 500 ML MDV (1 ML CHARGE) ONE (13:40)
[2024-12-31] MEDS: Benzonatate 100 MG CAP PO PRN (16:58)
[2024-12-31] MEDS: Acetaminophen 325 MG TAB PO PRN (20:36)
[2024-12-31] MEDS: Benzocaine/Menthol 1 LOZ LOZ PO PRN (20:37)
[2024-12-31] MEDS: Senokot S 8.6-50 MG TAB PO PRN (22:41)
[2025-01-01] MEDS: cefTRIAXone\\ROCEPHIN 1 GM in Sodium Chloride 0.9% 100 ML IVPB SCH (03:39)
[2025-01-01 05:25] LABS: Hematocrit 36.8 % (42.0-52.0); Hemoglobin 12.0 g/dL (14.0-18.0); Mean Corpuscular Hemoglobin 33.7 pg (27.0-31.0); Mean Corpuscular Volume 103.4 fL (78.0-98.0); Platelet Count 128 10x3/uL (130-400); Red Blood Cell (RBC) Count 3.56 mill/uL (4.70-6.10); White Blood Cell (WBC) Count 3.28 10x3/uL (4.8-10.8)
[2025-01-01 05:47] LABS: ALT (SGPT) 11 U/L (Less than 45); AST (SGOT) 18 U/L (11-34); Albumin 2.6 g/dL (3.1-4.5); Alkaline Phosphatase 74 U/L (40-110); Anion Gap 11 mmol/L (10-20); BUN (Urea Nitrogen) 5 mg/dL (8.9-20.6); Bilirubin, Total 0.2 mg/dL (0.3-1.2); Calc. Creatinine Clearance 151 mL/min (70-130); Calcium 7.6 mg/dL (7.8-10.44); Carbon Dioxide 22 mmol/L (22-29); Chloride 112 mmol/L (98-107); Globulin 2.8 g/dL (2.4-3.5); Glucose 117 mg/dL (70-105); Magnesium 1.5 mg/dL (1.6-2.6); Potassium 3.5 mmol/L (3.5-5.1); Sodium 141 mmol/L (136-145)
[2025-01-01 05:50] LABS: Burr Cells SLIGHT = 2-5 cells HPF (0-1); Macrocytosis SLIGHT = 6-15 cells HPF (0-5); Platelet Adequacy Comment Platelets Decreased; Smudge Cells 23.2 %
[2025-01-01] MEDS: Azithromycin 500 MG in Sodium Chloride 0.9% 250 ML 250 ML IVPB SCH (09:33)
[2025-01-01] MEDS: Magnesium 2 GM/50 ML(in water) 2 GM in Premix 1 BAG IVPB SCH (10:57)
[2025-01-01] MEDS: Potassium Bicarbonate/Cit Ac 20 MEQ TAB PO SCH (10:58)
[2025-01-02 12:50] LABS: Hematocrit 40.1 % (42.0-52.0); Hemoglobin 13.4 g/dL (14.0-18.0); Mean Corpuscular Hemoglobin 34.1 pg (27.0-31.0); Mean Corpuscular Volume 102.0 fL (78.0-98.0); Platelet Count 184 10x3/uL (130-400); Red Blood Cell (RBC) Count 3.93 mill/uL (4.70-6.10); White Blood Cell (WBC) Count 3.38 10x3/uL (4.8-10.8)
[2025-01-02 13:11] LABS: ALT (SGPT) 37 U/L (Less than 45); AST (SGOT) 64 U/L (11-34); Albumin 3.1 g/dL (3.1-4.5); Alkaline Phosphatase 78 U/L (40-110); Anion Gap 13 mmol/L (10-20); BUN (Urea Nitrogen) 10 mg/dL (8.9-20.6); Bilirubin, Total 0.3 mg/dL (0.3-1.2); Calc. Creatinine Clearance 144 mL/min (70-130); Calcium 8.4 mg/dL (7.8-10.44); Carbon Dioxide 26 mmol/L (22-29); Chloride 106 mmol/L (98-107); Globulin 3.5 g/dL (2.4-3.5); Glucose 93 mg/dL (70-105); Potassium 4.3 mmol/L (3.5-5.1); Sodium 141 mmol/L (136-145)
[2025-01-02 13:16] LABS: Anisocytosis SLIGHT = 6-15 cells HPF (0-5); Macrocytosis SLIGHT = 6-15 cells HPF (0-5); Platelet Adequacy Comment Platelets Normal; Smudge Cells 7.9 %
[2025-01-03] MEDS: Ibuprofen 200 MG TAB PO SCH (00:29)
[2025-01-03] MEDS: Guaifenesin DM 100-10/5 ML UDCUP PO SCH (00:30)
[2025-01-04] MEDS ORDERED: Guaifenesin DM 100-10/5 ML UDCUP PO PRN (12:21)
[2025-01-04] MEDS: Transdermal Patch Removal TOP SCH (20:25)
[2025-01-05] MEDS ORDERED: Transdermal Patch Removal TOP SCH (01:00)
[2025-01-05] MEDS: Cefdinir 300 MG CAP PO SCH (14:16)
[2025-01-05 15:02] VITALS: BP 114/69; TEMP 98.2
[2025-01-05 20:14] VITALS: BMI 28.1
[2025-01-05] MEDS ORDERED: Cefdinir 300 MG CAP PO SCH (21:00)
== END 2025-01-05 20:40 | disposition home or self-care (01) | DRG 871 ==
LOC: ERS 00:29 → 2NO 05:07
PROVIDERS: ADMIT Internal Medicine; ATTEND Internal Medicine
DX: A41.9 Sepsis, unspecified organism (principal); J15.69 Pneumonia due to other Gram-negative bacteria; J96.01 Acute respiratory failure with hypoxia; I47.10 Supraventricular tachycardia, unspecified; G80.9 Cerebral palsy, unspecified; K59.00 Constipation, unspecified; I10 Essential (primary) hypertension; Z88.6 Allergy status to analgesic agent; Z91.040 Latex allergy status; Z88.2 Allergy status to sulfonamides; Z91.09 Other allergy status, other than to drugs and biological substances; Z98.890 Other specified postprocedural states; K52.9 Noninfective gastroenteritis and colitis, unspecified; D64.9 Anemia, unspecified
CPT/HCPCS: 36415; 51701; 71260; 74018; 74177; 80053; 81001; 82805; 83605; 83735; 84145; 84484; 85025; 87040; 87086; 87428; 93005; 94640; 94760; 96365; 96367; 96375; 97139; J0456; J0696; J1650; J2405; J3475; J7030; J7050; Q9967